=== PATIENT | female | born 1980 | race Caucasian/White ===

== ENCOUNTER → 2020-11-23 15:38 | Outpatient (BNVA) | payer OTHER, SELFPAY | PROVIDERS: PCP Nurse Practitioner Family; Visit Provider Surgery Vascular Surgery ==

== ENCOUNTER 2020-12-20 10:13 | Outpatient (REF) | payer OTHER, SELFPAY ==
--- NOTE | ~2020-12-20 | US_ITS ---
EXAMINATION: RIGHT AND LEFT LOWER EXTREMITY VENOUS ULTRASOUND (REFLUX EXAM) CLINICAL INDICATION: Varicose left lower extremity with inflammation. COMPARISON: None. TECHNIQUE: Color flow triplex imaging and compression Doppler was performed to evaluate both the deep and the superficial systems bilaterally. To evaluate the superficial system, the examination was performed in the upright position. Color-flow Doppler ultrasound and compression ultrasound were utilized. In addition, maneuvers were utilized to demonstrate reflux. FINDINGS: 1. DEEP VENOUS ULTRASOUND OF THE RIGHT LOWER EXTREMITY: Respiratory variation, normal compression and augmented flow are noted in the right common femoral vein as well as the right popliteal vein and there is no evidence of deep venous thrombosis at these locations. There is no evidence of reflux in the deep system in either the common femoral vein or the popliteal vein. There is no evidence of a Michael's cyst. 2. SUPERFICIAL ULTRASOUND WITH DOPPLER OF RIGHT LOWER EXTREMITY: The right great saphenous vein at the saphenofemoral junction measures 6 mm, at the midthigh 3 mm, yhzvd-jns-hspj 3 mm, vokbr-tpx-auwk 3 mm, at midcalf 2 mm and at the ankle measures 1 mm. There is no reflux demonstrated in the right great saphenous vein. The right small saphenous vein measures 2 mm and shows reflux in the midcalf to approximately 2 seconds duration. In the proximal calf there is a 3 mm varicose vein with reflux to approximately 0.5 seconds. 3. DEEP VENOUS ULTRASOUND OF THE LEFT LOWER EXTREMITY: Respiratory variation, normal compression and augmented flow are noted in the left common femoral vein as well as the left popliteal vein and there is no evidence of deep venous thrombosis at these locations. There is no evidence of reflux in the deep system in either the common femoral vein or the popliteal vein. There is no evidence of a Michael's cyst. 4. SUPERFICIAL ULTRASOUND WITH DOPPLER OF LEFT LOWER EXTREMITY: Left great saphenous vein at the saphenofemoral junction measures 7 mm, at the midthigh 2 mm, orcob-ltz-whpz 3 mm, bipjo-muc-qabf 3 mm, at midcalf 1 mm and at the ankle measures 1 mm. There is no reflux demonstrated in the left great saphenous vein. The left small saphenous vein measures 2 mm and shows no reflux. US/US venous duplex LE BI IMPRESSION: 1. No evidence of reflux or thrombus in the common femoral veins or popliteal veins bilaterally. 2. The saphenous systems are competent bilaterally. 3. Insufficiency within the right small saphenous vein in the midcalf up to approximately 2 seconds duration.
--- NOTE | ~2020-12-20 | XR_ITS ---
EXAMINATION: XR CERVICAL SPINE CLINICAL INFORMATION: Cervical disc disorder. COMPARISON: Cervical spine radiographs dated 11/01/2015. TECHNIQUE: AP, lateral, open-mouth, and foraminal views of the cervical spine. FINDINGS: There are no prevertebral soft tissue or bony abnormalities demonstrated. No compression fractures or subluxations are identified. Alignment is maintained at the atlanto-axial articulation. The disc spaces are preserved. No endplate changes are seen. The prevertebral soft tissues are normal. The foramina are patent. XR/XR cervical spine 3V IMPRESSION: Unremarkable examination.
== END 2020-12-20 10:14 | disposition home or self-care (01) ==
LOC: HO.US 10:13
PROVIDERS: PCP Nurse Practitioner Family; Visit Provider Surgery Vascular Surgery
DX: M50.90 Cervical disc disorder, unspecified, unspecified cervical region (principal); I83.12 Varicose veins of left lower extremity with inflammation; I83.893 Varicose veins of bilateral lower extremities with other complications
CPT/HCPCS: 72040; 93970

== ENCOUNTER → 2020-12-28 09:12 | Outpatient (BNVA) | payer OTHER, SELFPAY | PROVIDERS: PCP Nurse Practitioner Family; Visit Provider Surgery Vascular Surgery ==

== ENCOUNTER 2021-01-03 08:33 | Outpatient (REF) | payer OTHER, MEDICAID, SELFPAY ==
[2021-01-03 11:32] LABS: Glucose Urine UA NEG (NEG); Leukocyte Esterase Urine NEG (NEG); Nitrite Urine NEG (NEG); Specific Gravity - Urine 1.015 (1.005-1.025); Urine Blood NEG (NEG); Urine Ketones NEG (NEG); Urine Protein NEG (NEG-TRACE)
[2021-01-03 11:43] LABS: Appearance Urine CLEAR; Color Urine YELLOW
[2021-01-03 12:08] LABS: Alanine Aminotransferase 23 U/L (0-31); Albumin Level 4.2 g/dL (3.5-5.0); Alkaline Phosphatase 96 U/L (39-117); Anion Gap 12 (12-20); Aspartate Amino Transferase 20 U/L (5-31); Bilirubin Total 0.2 mg/dL (0.0-1.0); Blood Urea Nitrogen 9 mg/dL (9-16); Calcium 9.2 mg/dL (8.4-10.2); Carbon Dioxide 26 mmol/L (22-29); Chloride 104 mmol/L (96-108); Cholesterol 152 mg/dL; Estimated Glomerular Filt Rate > 60; Glucose Fasting 89 mg/dL (60-99); HDL Cholesterol 50 mg/dL; LDL Cholesterol Calculated 86 mg/dl; Potassium 4.2 mmol/L (3.3-5.1); Sodium 138 mmol/L (135-145); Total Protein 7.5 g/dL (6.5-8.0); Triglycerides 82 mg/dL
[2021-01-03 12:31] LABS: TSH reflex Free T4 2.24 uIU/mL (0.32-4.0)
[2021-01-06 11:46] LABS: TS Negative Control Passed; TS Panel A 0; TS Panel B 0; TS Positive Control Passed; TSpotTB Negative (SeeBelow)
== END 2021-01-03 08:34 | disposition home or self-care (01) ==
LOC: HO.HMGCLDS 08:33
PROVIDERS: PCP Nurse Practitioner Family; Visit Provider Nurse Practitioner Family
DX: Z00.00 Encounter for general adult medical examination without abnormal findings (principal); Z11.1 Encounter for screening for respiratory tuberculosis
CPT/HCPCS: 36415; 80053; 80061; 81003; 84443; 86481

== ENCOUNTER 2021-01-23 07:09 | Outpatient (RCR) | payer OTHER, MEDICAID, SELFPAY ==
--- NOTE | 2021-01-23 08:05 | MHC.PT.EP ---
[facility] [place] Office [place] Office [place] Office [address] [phone] F: [phone] F: [phone] F: [phone] F: [phone] Physical Therapy Plan of Care Date of Evaluation: Date of Surgery: Diagnosis: cervical spine pain Assessment: Patient is a 40 year old R handed female who presents with s/s consistent with cervicalgia. 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 Patient past medical history includes GERD, no history of c-spine or UE pathology. Current impairments include pain, posture, ROM, strength, activity tolerance and functional mobility. Functional limitations include decreased ability to sleep, sit, work at computer, lift, carry, turn head, drive, and perform weight bearing activities.. Patient is motivated with good rehab potential. Skilled PT will address impairments and functional limitations in order to achieve goals. 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 Manual therapy to restore motion and function. Therapeutic exercise to improve strength and flexibility. Neuromuscular re-education for posture and balance. Therapeutic activities to return to functional activities of daily living. Electronically signed by: Km Vasquez, PT Please sign and return to therapist. Thank you for your referral.
--- NOTE | 2021-06-13 08:35 | MHC.PT.DC ---
[facility] [place] Office [place] Office [place] Office [address] Mendez [address] [phone] F: [phone] F: [phone] F: [phone] F: [phone] Physical Therapy Discharge Report Diagnosis: cervical spine pain Date of Surgery: Date of Evaluation: 01/23/21 Date of Discharge: 01/23/21 Treatments to Date: 1 Cancellations to Date: 0 No Shows to Date: 0 Discharge Status: Patient Elected to Stop Discharge Summary: Pt did not follow up with more PT appointments after the initial evaluation. Patient is a 40 year old R handed female who presents with s/s consistent with cervicalgia. 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 Patient past medical history includes GERD, no history of c-spine or UE pathology. Current impairments include pain, posture, ROM, strength, activity tolerance and functional mobility. Functional limitations include decreased ability to sleep, sit, work at computer, lift, carry, turn head, drive, and perform weight bearing activities.. Patient is motivated with good rehab potential. Skilled PT will address impairments and functional limitations in order to achieve goals. Electronically signed by: Km Vasquez, PT Please sign and return to therapist. Thank you for your referral.
== END 2021-01-24 07:00 | disposition home or self-care (01) ==
LOC: HO.PTCHIC 07:09
PROVIDERS: PCP Nurse Practitioner Family; Visit Provider Nurse Practitioner Family
DX: M54.2 Cervicalgia (principal)
CPT/HCPCS: 97140; 97161

== ENCOUNTER 2021-01-27 08:48 | Outpatient (REF) | payer OTHER, MEDICAID, SELFPAY ==
--- NOTE | ~2021-01-27 | MM_ITS ---
EXAMINATION: MM SCREENING DIGITAL BREAST TOMOSYNTHESIS, BILATERAL CLINICAL INFORMATION: Screening. Asymptomatic. The lifetime risk of breast cancer based on the Tyrer-Cuzick Model is 11%. COMPARISON: Mammography: None TECHNIQUE: Digital breast tomosynthesis is performed in both the craniocaudal and mediolateral oblique views along with computer-aided detection (CAD). Synthesized 2D images are generated from the tomosynthesis. FINDINGS: The breasts are heterogeneously dense, which may obscure small masses (ACR BI-RADS breast composition Category c). There are no significant masses, abnormal calcifications, or other abnormalities. MM/MM tomosynthesis screening BI IMPRESSION: There are no significant changes from prior study. ASSESSMENT: BI-RADS 1: Negative RECOMMENDATION: Routine annual mammography screening. This patient's information was entered into a reminder system with a target due date for their next mammogram.
== END 2021-01-27 08:49 | disposition home or self-care (01) ==
LOC: HO.MAMMO 08:48
PROVIDERS: PCP Nurse Practitioner Family; Visit Provider Nurse Practitioner Family
DX: Z12.31 Encounter for screening mammogram for malignant neoplasm of breast (principal)
CPT/HCPCS: 77063; 77067

== ENCOUNTER 2021-04-17 10:38 | Outpatient (REF) | payer OTHER, MEDICAID, SELFPAY | END 2021-04-17 10:39 | disposition home or self-care (01) | LOC: HO.LAB 10:38 | PROVIDERS: PCP Nurse Practitioner Family; Visit Provider Internal Medicine | DX: Z20.822 Contact with and (suspected) exposure to COVID-19 (principal) | CPT/HCPCS: C9803; U0003; U0005 ==

== ENCOUNTER 2021-05-10 06:31 | Outpatient (REF) | payer OTHER, MEDICAID, SELFPAY | END 2021-05-10 06:32 | disposition home or self-care (01) | LOC: HO.HMGCLDS 06:31 | PROVIDERS: Visit Provider Internal Medicine | DX: Z20.822 Contact with and (suspected) exposure to COVID-19 (principal) | CPT/HCPCS: C9803; U0003; U0005 ==

== ENCOUNTER 2021-12-30 18:05 | Emergency (ER) | payer OTHER, MEDICAID, SELFPAY ==
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
--- NOTE | ~2021-12-30 | CT_ITS ---
EXAMINATION: NONCONTRAST HEAD CT NONCONTRAST CERVICAL SPINE CT INDICATION INFORMATION: Trauma COMPARISON: None TECHNIQUE: Separate noncontrast CT examinations of the head and cervical spine were performed. Coronal and sagittal images were created for each examination at the technologist workstation. This CT examination was performed using dose optimization techniques as appropriate, variously including the following: *Automated exposure control *Adjustment of mA and/or kV according to patient size (this includes techniques or standardized protocols for targeted exams where dose is matched to indication/reason for exam; i.e. extremities or head) *Use of iterative reconstruction technique DLP: 1265 mGy-cm FINDINGS: Head: There is no evidence of acute intracranial hemorrhage or territorial infarction. No abnormal mass effect or midline shift is seen. Potter to white matter differentiation is well preserved. No extra-axial fluid collections are identified. No hydrocephalus. No significant volume loss. There is no abnormal attenuation within the brain parenchyma. No acute osseous or soft tissue abnormality. The mastoid air cells and visualized portions of the paranasal sinuses are well aerated. Cervical spine: There is anatomic alignment of the vertebral bodies and posterior elements. The atlantoaxial and atlantooccipital articulations are intact. Vertebral body heights and intervertebral disc spaces are maintained. No evidence of acute fracture. No prevertebral soft tissue swelling. Visualized portions of the lung apices are unremarkable. The thyroid gland is unremarkable. CT/CT head/brain wo con IMPRESSION: 1. No acute intracranial finding. 2. No acute fracture or malalignment of the cervical spine.
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
--- NOTE | ~2021-12-30 | XR_ITS ---
EXAMINATION: XR SHOULDER, LEFT CLINICAL INFORMATION: Pain. COMPARISON: None TECHNIQUE: Three views of the left shoulder. FINDINGS: Subtle cortical disruption with adjacent lucency in the superior aspect of the scapula, best visualized in the y-scapulary view. No other significant osseous abnormalities. Normal appearance of the soft tissues. Included portions of the left lung are clear. XR/XR shoulder LT min 2V IMPRESSION: Subtle cortical disruption and lucency of the superior scapula, possibly representing an underlying fracture. Recommend correlation with a CT.
[2021-12-30 20:25] VITALS: BP 156/105; PULSE 85; RESP 20; TEMP 36.5; O2SAT 100; BMI 36.6
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
[2021-12-30 23:21] LABS: MANUAL DIFF FLAG NO
--- NOTE | 2021-12-30 23:21 | PC.NURSE ---
IV ACCESS PLACED IN RIGHT AC REFER TO IV ACCESS DOCUMENTATION IN WORKLIST. BLOOD WORK COLLECTED AND SENT TO THE LAB
[2021-12-30 23:24] LABS: Basophils Absolute Auto 0.1 X10*3/uL (0.0-0.2); Basophils Percent Auto 0.3 % (0-2); Eosinophils Percent Auto 0.2 % (0-4); Hematocrit 38.3 % (37.0-47.0); Hemoglobin 12.7 g/dl (12.0-16.0); Imm Gran Abs Auto 0.06 X10*3/uL (0.00-0.03); Imm Gran Pct Auto 0.3 % (0.0-0.4); Lymphocytes Absolute Auto 2.3 X10*3/uL (1.2-4.9); Lymphocytes Percent Auto 12.9 % (20-40); Mean Corpuscular HGB Conc 33.2 g/dl (31.0-35.0); Mean Corpuscular Volume 87.4 fL (80.0-98.0); Monocytes Absolute Auto 0.8 X10*3/uL (0.1-1.2); Monocytes Percent Auto 4.3 % (2-11); Neutrophils Absolute Auto 14.8 x10*3/uL (2.0-8.3); Platelet Count 305 X10*3/uL (160-400); Red Blood Count 4.38 X10*6/uL (4.20-5.50); Red Cell Distribution Width 13.1 % (11.0-16.0)
[2021-12-30] MEDS: oxyCODONE HCl Immed Release 5 MG TABLET PO (23:26)
[2021-12-30] MEDS: Acetaminophen 325 MG TABLET 975 MG PO (23:26)
--- NOTE | 2021-12-30 23:30 | PC.NURSE ---
PT MEDICATED PER MAR ORDERS, BED LOCKED IN LOWEST POSITION AND CALL LIGHT WITHIN REACH
[2021-12-30 23:35] LABS: COVID-19 Test Negative (Negative)
[2021-12-30 23:41] LABS: Anion Gap 15 (12-20); Blood Urea Nitrogen 11 mg/dL (9-16); Calcium 9.4 mg/dL (8.4-10.2); Carbon Dioxide 23 mmol/L (22-29); Chloride 105 mmol/L (96-108); Creatinine Clr Calc Pharmacy 103.4; Estimated Glomerular Filt Rate > 60; Glucose Random 111 mg/dL (60-115); Potassium 4.5 mmol/L (3.3-5.1); Sodium 138 mmol/L (135-145)
[2021-12-30 23:55] LABS: HCG Quantitative < 2 mIU/mL
[2021-12-31] MEDS: iohexoL 350 MG/ML 100 ML INFUS..BTL IV (00:45)
== END 2021-12-31 01:46 | disposition home or self-care (01) ==
PROVIDERS: Physician Assistant; Emergency Provider Emergency Medicine; PCP Nurse Practitioner Family
DX: S42.102A Fracture of unspecified part of scapula, left shoulder, initial encounter for closed fracture (principal); M54.2 Cervicalgia; R10.9 Unspecified abdominal pain; R51.9 Headache, unspecified; M54.6 Pain in thoracic spine; M25.512 Pain in left shoulder; V27.4XXA Motorcycle driver injured in collision with fixed or stationary object in traffic accident, initial encounter; Y93.9 Activity, unspecified; Y92.410 Unspecified street and highway as the place of occurrence of the external cause; Y99.9 Unspecified external cause status; Z20.822 Contact with and (suspected) exposure to COVID-19; Z79.899 Other long term (current) drug therapy
CPT/HCPCS: 36415; 70450; 71260; 72125; 73030; 74177; 80048; 84702; 85025; 87635; 99284; Q9967

== ENCOUNTER 2022-01-07 08:54 | Outpatient (REF) | payer OTHER, MEDICAID, SELFPAY ==
[2022-01-07 11:24] LABS: MANUAL DIFF FLAG NO
[2022-01-07 11:27] LABS: Appearance Urine Clear; Color Urine Yellow; Glucose Urine UA Negative (Negative); Leukocyte Esterase Urine Negative (Negative); Nitrite Urine Negative (Negative); Urine Blood Negative (Negative); Urine Ketones Negative (Negative); Urine Protein Negative (Neg-Trace)
[2022-01-07 11:40] LABS: Basophils Percent Auto 0.5 % (0-2); Eosinophils Absolute Auto 0.2 X10*3/uL (0.0-0.4); Hematocrit 36.7 % (37.0-47.0); Hemoglobin 12.2 g/dl (12.0-16.0); Imm Gran Abs Auto 0.02 X10*3/uL (0.00-0.03); Imm Gran Pct Auto 0.3 % (0.0-0.4); Lymphocytes Absolute Auto 1.6 X10*3/uL (1.2-4.9); Lymphocytes Percent Auto 21.3 % (20-40); Mean Corpuscular HGB Conc 33.2 g/dl (31.0-35.0); Mean Corpuscular Hemoglobin 29.1 pg (27.0-33.0); Mean Corpuscular Volume 87.6 fL (80.0-98.0); Mean Platelet Volume 11.3 fL (9.4-12.3); Monocytes Absolute Auto 0.4 X10*3/uL (0.1-1.2); Monocytes Percent Auto 5.2 % (2-11); Neutrophils Absolute Auto 5.2 x10*3/uL (2.0-8.3); Neutrophils Percent Auto 69.7 % (45-73); Platelet Count 311 X10*3/uL (160-400); Red Blood Count 4.19 X10*6/uL (4.20-5.50); Red Cell Distribution Width 12.7 % (11.0-16.0); White Blood Count 7.4 X10*3/uL (4.8-10.8)
[2022-01-07 12:13] LABS: Alanine Aminotransferase 23 U/L (0-31); Alkaline Phosphatase 85 U/L (39-117); Anion Gap 12 (12-20); Aspartate Amino Transferase 21 U/L (5-31); Bilirubin Total 0.3 mg/dL (0.0-1.0); Blood Urea Nitrogen 9 mg/dL (9-16); Carbon Dioxide 28 mmol/L (22-29); Chloride 105 mmol/L (96-108); Cholesterol 153 mg/dL; Estimated Glomerular Filt Rate > 60; Glucose Fasting 101 mg/dL (60-99); HDL Cholesterol 46 mg/dL; LDL Cholesterol Calculated 87 mg/dl; Potassium 4.5 mmol/L (3.3-5.1); Sodium 140 mmol/L (135-145); Total Protein 7.1 g/dL (6.5-8.0); Triglycerides 101 mg/dL
[2022-01-07 12:17] LABS: TSH reflex Free T4 1.67 uIU/mL (0.32-4.0)
== END 2022-01-07 08:55 | disposition home or self-care (01) ==
LOC: HO.HMGCLDS 08:54
PROVIDERS: PCP Nurse Practitioner Family; Visit Provider Nurse Practitioner Family
DX: Z00.00 Encounter for general adult medical examination without abnormal findings (principal)
CPT/HCPCS: 36415; 80053; 80061; 81003; 84443; 85025

== ENCOUNTER 2022-02-04 07:29 | Outpatient (REF) | payer OTHER, MEDICAID, SELFPAY ==
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
== END 2022-02-04 07:30 | disposition home or self-care (01) ==
LOC: HO.HOSX 07:29
PROVIDERS: Visit Provider Physician Assistant
DX: M25.512 Pain in left shoulder (principal)
CPT/HCPCS: 73030

== ENCOUNTER 2022-03-18 08:19 | Outpatient (REF) | payer OTHER, MEDICAID, SELFPAY ==
--- NOTE | ~2022-03-18 | XR_ITS ---
EXAMINATION: XR SHOULDER, LEFT CLINICAL INFORMATION: Shoulder pain. Prior history scapular fracture. COMPARISON: Radiographs left shoulder 02/04/2022, 12/30/2021; CT chest 12/31/2021 TECHNIQUE: Left shoulder is imaged in 3 views. FINDINGS: There is superior lateral scapular fracture, or alignment similar to prior exams. There is no interval new fracture or change in alignment or destructive process. The glenohumeral joint is unremarkable. Again, there is mild widening acromioclavicular joint with mild elevation of the distal clavicle. XR/XR shoulder LT min 2V IMPRESSION: 1. Prior superior scapular fracture, or alignment similar to prior exam. 2. Mild acromioclavicular separation, stable.
== END 2022-03-18 08:20 | disposition home or self-care (01) ==
LOC: HO.HOSX 08:19
PROVIDERS: Visit Provider Physician Assistant
DX: M25.512 Pain in left shoulder (principal)
CPT/HCPCS: 73030

== ENCOUNTER 2022-03-21 07:00 | Outpatient (RCR) | payer OTHER, MEDICAID, SELFPAY ==
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
== END 2022-04-23 10:44 | disposition home or self-care (01) ==
LOC: HO.PTCHIC 07:00
PROVIDERS: PCP Nurse Practitioner Family; Visit Provider Physician Assistant
DX: S42.102A Fracture of unspecified part of scapula, left shoulder, initial encounter for closed fracture (principal)
CPT/HCPCS: 97110; 97161

== ENCOUNTER 2022-04-29 06:26 | Outpatient (REF) | payer OTHER, MEDICAID, SELFPAY | END 2022-04-29 06:27 | disposition home or self-care (01) | LOC: HO.HOSX 06:26 | PROVIDERS: Visit Provider Physician Assistant | DX: Z13.89 Encounter for screening for other disorder (principal) ==

== ENCOUNTER → 2022-11-06 15:45 | Outpatient (BNV) | payer OTHER, MEDICAID, SELFPAY | PROVIDERS: PCP Pediatrics; Visit Provider Radiology Diagnostic Radiology | DX: Z12.31 Encounter for screening mammogram for malignant neoplasm of breast (principal) | CPT/HCPCS: 77063; 77067 ==

== ENCOUNTER 2022-11-06 15:48 | Outpatient (REF) | payer OTHER, MEDICAID, SELFPAY ==
--- NOTE | ~2022-11-06 | MM_ITS ---
EXAMINATION: MM SCREENING DIGITAL BREAST TOMOSYNTHESIS, BILATERAL CLINICAL INFORMATION: Screening. Asymptomatic. The lifetime risk of breast cancer based on the Tyrer-Cuzick Model is 16.4.%. COMPARISON: Mammography: This study is compared with the prior mammogram from 01/27/2021. TECHNIQUE: Digital breast tomosynthesis is performed in both the craniocaudal and mediolateral oblique views along with computer-aided detection (CAD). Synthesized 2D images are generated from the tomosynthesis. FINDINGS: The breasts are heterogeneously dense, which may obscure small masses (ACR BI-RADS breast composition Category c). There are no significant masses, abnormal calcifications, or other abnormalities. MM/MM tomosynthesis screening BI IMPRESSION: No mammographic evidence of malignancy. ASSESSMENT: BI-RADS BI-RADS 1 - Negative RECOMMENDATION: Routine annual mammography screening. 1 year F/U This patient's information was entered into a reminder system with a target due date for their next mammogram.
== END 2022-11-06 15:49 | disposition home or self-care (01) ==
LOC: HO.MAMMO 15:48
PROVIDERS: PCP Pediatrics; Visit Provider Pediatrics
DX: Z12.31 Encounter for screening mammogram for malignant neoplasm of breast (principal)
CPT/HCPCS: 77063; 77067

== ENCOUNTER 2023-01-15 20:15 | Emergency (ER) | payer OTHER, SELFPAY ==
--- NOTE | ~2023-01-15 | XR_ITS ---
EXAMINATION: XR WRIST, RIGHT CLINICAL INFORMATION: Fall. Pain. COMPARISON: None available. TECHNIQUE: PA, lateral, and oblique views of the right wrist. FINDINGS: The bone mineralization is within normal limits. There is a mildly displaced fracture through the distal radius extending to the joint space. No other fracture is seen. The soft tissues are unremarkable. XR/XR wrist RT min 3V IMPRESSION: Mildly displaced fracture of the distal radius extending to the joint space.
[2023-01-15 21:41] VITALS: BP 156/103; PULSE 62; RESP 16; TEMP 36.6; O2SAT 99; BMI 37.8
[2023-01-16 00:42] VITALS: BP 152/87; PULSE 59; RESP 16; TEMP 36.6; O2SAT 98
--- NOTE | 2023-01-16 00:48 | MHC.EDTECH ---
this pct assumed care of pt at this time ,vitals sign taken ,pt resting quietly in bed .
[2023-01-16] MEDS: Morphine Sulfate Immed Release 15 MG TABLET PO (01:57)
--- NOTE | 2023-01-16 02:03 | ED.EXTPRO ---
HPI - Extremity Problem General Chief complaint: Extremity Injury, Upper Stated complaint: fell, right arm pain , lower back pain Time Seen by Provider: 01/16/23 01:17 Source: patient Mode of arrival: ambulatory Limitations: no limitations History of Present Illness HPI Narrative: Patient slipped and fell hitting her right wrist to the ground with body weight on top of it complaining of pain and swelling of the right wrist no prior history of fracture in the same area before no other injuries Related Data Previous Rx's Medication Instructions Recorded ibuprofen 600 mg tablet 600 mg PO Q8H PRN pain #14 tabs 12/31/21 oxycodone-acetaminophen 5 mg-325 1 tab PO Q6H PRN pain #20 tabs 01/16/23 mg tablet (Percocet) Allergies Allergy/AdvReac Type Severity Reaction Status Date / Time No Known Allergies Allergy Verified 01/15/23 21:46 Review of Systems Review of Systems: Yes all other systems are reviewed and are negative [facility] Past Medical History Medical History GERD (gastroesophageal reflux disease) Surgical History History of loop electrical excision procedure (LEEP) Hx of section Family History Family History Father No problems noted. Mother Diabetes Maternal Aunt Mental health disorder Maternal Aunt Mental health disorder Social History Social History Housing: House Unable to assess alcohol history related to: Unable to respond Alcohol intake: never Patient Tobacco Use Status: Never used Tobacco Smoked in Last 30 Days: No e-Cigarette/Vaping Use: Never Used Second Hand Smoke Exposure: No Use of substances other than those prescribed or required for medical reasons: No Advance Directives: No Advance Directives Information Provided: Yes service: No Current occupational status: employed Cognitive needs: No Hearing needs: No Vision needs: No Physical Exam Vital Signs: Vital Signs: Last Vital Signs Temp 97.9 F 01/16/23 00:42 Pulse 59 01/16/23 00:42 Resp 16 01/16/23 00:42 BP 152/87 H 01/16/23 00:42 Pulse Ox 98 01/16/23 00:42 O2 Del Method Room Air 01/16/23 00:42 BMI result Body Mass Index 37.8 Appearance: Alert. Oriented X3. No acute distress. ENT: Pharynx normal. Oral Mucosa moist Neck: Normal inspection. Neck supple. CVS: Normal heart rate and rhythm. Pulses normal. Respiratory: No respiratory distress. Equal air entry bilateral, no wheezing/rales/rhonchi Abdomen: Soft and nontender. Bowel sounds are present, no mass palpable, no CVA tenderness Skin: Skin warm and dry. Normal skin color. Normal skin turgor. Extremities: No lower extremity edema. No calf tenderness tenderness and swelling right wrist neurovascular intact no deformity Neuro: Oriented X 3. No motor deficit. No sensory deficit.No cerebellar signs , cranial nerves II-XII intact Medications Administered Discontinued Medications Generic Name Dose Route Start Last Admin Trade Name Freq PRN Reason Stop Dose Admin Morphine Sulfate 15 mg 01/16/23 01:46 01/16/23 01:57 Morphine Sulfate Immed Release 15 Mg Tablet PO 01/16/23 01:47 15 mg ONCE ONE Administration Medical Decision Making Radiology Impression Discussion of test interpretation with radiology: I have reviewed the radiologist's reading. Radiologist Impression: EXAMINATION: XR WRIST, RIGHT CLINICAL INFORMATION: Fall. Pain.? COMPARISON: None available.? TECHNIQUE: PA, lateral, and oblique views of the right wrist. FINDINGS: The bone mineralization is within normal limits. There is a mildly displaced fracture through the distal radius extending to the joint space. No other fracture is seen. The soft tissues are unremarkable.? XR/XR wrist RT min 3V IMPRESSION: Mildly displaced fracture of the distal radius extending to the joint space. ? Procedures Orthopedic Splinting/Casting Injury #1: Side: right Upper Extremity Injury Location: wrist Upper Extremity Immobilizer: sugar tong splint Discharge Plan Discharge Clinical Impression: Distal radial fracture Patient Disposition: Home, Self-Care Instructions: Wrist Fracture in Adults (ED) Additional Instructions: Wear the splint and sling for support Keep right hand elevated Pain medication as prescribed Follow-up with orthopedics for further evaluation and management in next 3- 4 days Prescriptions: New oxycodone-acetaminophen [Percocet] 5-325 mg tablet 1 tab PO Q6H PRN (Reason: pain) Qty: 20 0RF Rx Instructions: Partial Fill upon patient request. No Action ibuprofen 600 mg tablet 600 mg PO Q8H PRN (Reason: pain) Qty: 14 0RF Referrals: Keanu Crespo MD [Physician] - 5 days Stand Alone Forms: Work/School Release Interventions: ED Discharge Assessment Last Done: 01/16/23 01:57 Discharge Date/Time: 01/16/23 01:58
== END 2023-01-16 01:58 | disposition home or self-care (01) ==
PROVIDERS: Emergency Provider Internal Medicine; PCP Pediatrics
DX: S52.501A Unspecified fracture of the lower end of right radius, initial encounter for closed fracture (principal); M25.531 Pain in right wrist; W01.0XXA Fall on same level from slipping, tripping and stumbling without subsequent striking against object, initial encounter; Y93.9 Activity, unspecified; Y92.9 Unspecified place or not applicable; Y99.9 Unspecified external cause status
CPT/HCPCS: 29125; 73110; 99283; 99284

== ENCOUNTER 2023-01-21 08:33 | Outpatient (REF) | payer OTHER, SELFPAY ==
--- NOTE | ~2023-01-21 | XR_ITS ---
EXAMINATION: XR WRIST, RIGHT CLINICAL INFORMATION: Right wrist pain COMPARISON: None available. TECHNIQUE: PA, lateral, and oblique views of the right wrist. FINDINGS: Comminuted, nondisplaced fracture distal right radius with intra-articular extension. Alignment is maintained. Mild soft tissue swelling. XR/XR wrist RT min 3V IMPRESSION: Fractured distal right radius.
== END 2023-01-21 08:34 | disposition home or self-care (01) ==
LOC: HO.HOSX 08:33
PROVIDERS: Visit Provider Orthopaedic Surgery
DX: S52.501A Unspecified fracture of the lower end of right radius, initial encounter for closed fracture (principal)
CPT/HCPCS: 73110

== ENCOUNTER 2023-01-21 13:42 | Outpatient (AMB) | payer OTHER, SELFPAY ==
--- NOTE | 2023-01-21 13:57 | A.OFFVIS_ITS ---
Intake Vital Signs 01/21/23 14:00 Height 5 ft 1 in Weight 200 lb BMI 37.8 Intake Visit Reasons: ED follow up rt Dist Radius fx 01/16/23 Intake Note: Weston 42yr old right hand dominant female presents today with her Nikolas for a new injury from 01/16/23. States she slipped and fell hitting her right wrist to the ground with body weight on top of it. Seen in ED same day where xrays were taken, patient was splinted and referred to our Orthopedic office. Patient states her pain is all over her hand. Has stiffness, tenderness, bruising and is not able to make a full close . Xrays updated in office. Allergies No Known Allergies Allergy (Verified 01/21/23 13:59) HPI ED follow up rt Dist Radius fx 01/16/23 HPI Details Weston Díaz is a 42-year-old right hand dominant woman who presents today with her Nikolas to the office for an evaluation of right distal radius fracture on 01/16/23. The patient states that she slipped on some stairs and fell hitting her right wrist to the ground with body weight on top of it. She complains of pain and swelling of the right wrist.The patient states that her pain is all over her hand. She has stiffness, tenderness, bruising and is not able to make a full close. 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 She was seen in ED same day where x-rays were taken. The patient was splinted and referred to us. [facility] Medical History (Updated 01/21/23 @ 14:23 by Duarte Trejo) Fracture of right distal radius GERD (gastroesophageal reflux disease) Surgical History Hx of section History of loop electrical excision procedure (LEEP) Family History Father No problems noted. 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 Cognitive needs: No Hearing needs: No Vision needs: No Review of Systems Const All systems reviewed & are unremarkable except as noted in HPI and below Physical Exam Vital Signs: BMI result Body Mass Index 37.8 Const General: cooperative, healthy appearing and no acute distress Orientation/consciousness: oriented to person and oriented to place HEENT Head: Yes normocephalic and Yes atraumatic Eyes EOM: EOMs intact bilaterally Resp Effort & Inspection: normal respiratory effort and able to speak in complete sentences Cardio Jugular venous distension: no JVD Skin General skin exam: turgor normal Rashes: no rashes Trauma: no lacerations or abrasions Neuro Other: Vascular: Cap refill brisk General: oriented to person and oriented to place Extrem Other: Evaluation of right Upper Extremity: Neuro: Sensation intact to all digits. Vascular: Cap refill brisk. She has some swelling and volar ecchymosis of her right wrist. She is most tender to palpation over the right distal radius. She has some mild tenderness to palpation over the distal ulna. No tenderness about the elbow over the proximal forearm squeeze. No tenderness along the length of the ulna until I get to the distal ulna. She has full pronation. With encouragement I can get her to about 45 degrees of supination without discomfort. With encouragement I can get her to bring her fingers close to a week fist and back into extension. No lacerations or evidence of open injury. Radiographs: Three views of the right wrist were taken today and reviewed by me in clinic. It shows a comminuted intra-articular fracture of the right distal radius that is only minimally displaced. I do not see any step-off at the distal radial articular surface. She has about 5 degrees of dorsal tilt on the lateral. Psych Appearance: grossly normal Affect: normal affect Attitude: cooperative Assessment & Plan Assessment & Plan (1) Fracture of right distal radius: Code(s): S52.501A - Unspecified fracture of the lower end of right radius, initial encounter for closed fracture Plan 1. Right distal radius fracture, comminuted intra-articular Minimally displaced, with no articular step-off, and about 4-5 degrees of dorsal tilt on the lateral.. DOI: 01/16/23. Occurred when she fell down some steps I educated her about this condition We did discuss operative and non operative treatment options. We are going to try and manage this non operatively, however it is possible that she may need operative treatment of this fracture. She is being placed in a well-molded cast and will follow-up next week with new radiographs three views of the right wrist out of plaster. Will determine next week whether we will manage this with surgery or continue to manage this fracture non operatively. We talked to her about the importance of activity modification. This point I do not even want her handling cell phone with her right hand. She is going to work on active finger range of motion and also work on not keeping her hand in a pronated position but allowing it to come into about 45 degrees of supination periodically. The patient will follow up in one week with repeat x-ray three views of the right wrist out of plaster.. Scribed for Dr. Neida Ramirez by Duarte Trejo, medical appliance maker, on 01/21/2023. I, Dr. Neida Ramirez, have personally reviewed and agree with the information entered by the scribe. Orders: Orders XR wrist RT min 3V Today M25.531 - Pain in right wrist Coding Level of Care Code New Pt Level 3 (02287) Diagnoses Fracture of right distal radius S52.501A
[2023-01-21 14:00] VITALS: BMI 37.8
== END 2023-01-21 14:54 | disposition home or self-care (01) ==
PROVIDERS: PCP Pediatrics; Visit Provider Orthopaedic Surgery
DX: S52.351A Displaced comminuted fracture of shaft of radius, right arm, initial encounter for closed fracture (principal)
CPT/HCPCS: 25600; 99204

== ENCOUNTER 2023-01-29 11:30 | Outpatient (REF) | payer OTHER, SELFPAY ==
--- NOTE | ~2023-01-29 | XR_ITS ---
EXAMINATION: XR WRIST, RIGHT CLINICAL INFORMATION: Right wrist pain. COMPARISON: Multiple priors, most recent right wrist radiographs dated 01/21/2023. TECHNIQUE: PA, lateral, and oblique views of the right wrist. FINDINGS: Redemonstration of a mildly displaced and comminuted distal radial fracture in unchanged anatomic alignment when compared to the prior examination. No significant new bone/callus formation. No joint space narrowing or marginal osteophytes. No concerning lytic or blastic osseous lesion. XR/XR wrist RT min 3V IMPRESSION: Distal radial fracture in unchanged anatomic alignment. No significant new bone/callus formation.
== END 2023-01-29 11:31 | disposition home or self-care (01) ==
LOC: HO.HOSX 11:30
PROVIDERS: Visit Provider Orthopaedic Surgery
DX: S52.501D Unspecified fracture of the lower end of right radius, subsequent encounter for closed fracture with routine healing (principal)
CPT/HCPCS: 73110

== ENCOUNTER 2023-01-29 14:14 | Outpatient (AMB) | payer OTHER, SELFPAY ==
--- NOTE | 2023-01-29 14:28 | MHC.OFFVIS ---
Intake Vital Signs 01/29/23 14:29 Height 5 ft 1 in Weight 200 lb BMI 37.8 Intake Visit Reasons: OV- rt Dist Radius fx 01/16/23 Intake Note: Weston 42 yr old right hand dominant female presents today for her follow up visit for her right distal radius fracture from 01/16/23. Cast removed and xrays updated. Presents today to determine whether we will manage this with surgery or continue to manage this fracture non operatively. Patient states she is having pain and has concerns due to bruising and swelling. Allergies No Known Allergies Allergy (Verified 01/21/23 13:59) HPI OV- rt Dist Radius fx 01/16/23 HPI Details Weston is a 42 year old right hand dominant Macanese speaking woman who presents for a follow-up of her right distal radius fracture, DOI: 01/7623. She complains of pain in her wrist as well as concerns over swelling & bruising. She says she also feels a throbbing pain in her fingers at times, and says it is painful to move her fingers [facility] Medical History (Updated 01/21/23 @ 14:23 by Duarte Trejo) Fracture of right distal radius GERD (gastroesophageal reflux disease) Surgical History Hx of section History of loop electrical excision procedure (LEEP) Family History Father No problems noted. 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 Cognitive needs: No Hearing needs: No Vision needs: No Review of Systems Const All systems reviewed & are unremarkable except as noted in HPI and below Physical Exam Vital Signs: BMI result Body Mass Index 37.8 Const General: no acute distress and alert Orientation/consciousness: patient oriented x3 Neuro General: patient oriented x3 Extrem Other: Evaluation of Right Upper Extremity: The patient is alert, oriented, and in no acute distress Neuro: Sensation intact to all digits She has some resolving swelling and volar ecchymosis She is able to demonstrate that she can make a weak fist and bring all her fingers back into extension. She still has some tenderness over the fracture site, but the skin is soft. Skin is good in good condition Radiographs: 3 views of the right wrist were taken and viewed by me today in clinic. They show a comminuted intra-articular fracture of the right distal radius that is only minimally displaced. I do not see any step-off at the distal radial articular surface. She has ~4-5 degrees of dorsal tilt on the lateral and her alignment is unchanged compared to original radiographs. Psych Appearance: grossly normal Affect: normal affect Attitude: cooperative Assessment & Plan Assessment & Plan (1) Fracture of right distal radius: Code(s): S52.501A - Unspecified fracture of the lower end of right radius, initial encounter for closed fracture Plan Assessment & Plan: 1. Right distal radius fracture, comminuted intra-articular Minimally displaced, with no articular step-off, and ~4-5 degrees of dorsal tilt on the lateral.. DOI: 01/15/23. Occurred when she fell down some steps I educated her about this condition Her fracture alignment has been maintained. We will continue to manage this conservatively. She was placed in a new molded short-arm cast. We talked to her about the importance of activity modification, she is to continue to work on finger ROM exercises at home, 20x daily I explained that the pain she feels in her fingers is attributed to stiffness and disuse and explained that gentle motion is the best thing to help minimize her pain I recommend she take ibuprofen or Tylenol for pain at this point. She is now 2 weeks post injury. 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 Orders: Orders XR wrist RT min 3V Today M25.531 - Pain in right wrist Coding Level of Care Code Global (06958) Diagnoses Fracture of right distal radius S52.501A
[2023-01-29 14:29] VITALS: BMI 37.8
== END 2023-01-29 15:28 | disposition home or self-care (01) ==
PROVIDERS: PCP Pediatrics; Visit Provider Orthopaedic Surgery
DX: S52.501A Unspecified fracture of the lower end of right radius, initial encounter for closed fracture (principal)
CPT/HCPCS: 99024

== ENCOUNTER 2023-02-07 10:27 | Outpatient (REF) | payer OTHER, SELFPAY ==
--- NOTE | ~2023-02-07 | XR_ITS ---
EXAMINATION: XR WRIST, RIGHT CLINICAL INFORMATION: Pain in the right wrist COMPARISON: Multiple prior radiographs most recent 01/29/2023 TECHNIQUE: PA, lateral, and oblique views of the right wrist. FINDINGS: Mildly comminuted possibly intra-articular fracture the distal radius unchanged compared to prior. There is minimal if any displacement overall unchanged. The remaining bones joints soft tissues are unremarkable. XR/XR wrist RT min 3V IMPRESSION: Stable appearance of the distal radius fracture
== END 2023-02-07 10:28 | disposition home or self-care (01) ==
LOC: HO.HOSX 10:27
PROVIDERS: Visit Provider Orthopaedic Surgery
DX: M25.531 Pain in right wrist (principal)
CPT/HCPCS: 73110

== ENCOUNTER 2023-02-07 10:28 | Outpatient (AMB) | payer OTHER, SELFPAY ==
--- NOTE | 2023-02-07 10:56 | MHC.OFFVIS ---
Intake Intake Visit Reasons: O/V rt distal radius 01/15/23 Intake Note: Weston is a 42 yr old right hand dominant female presents today for her follow up visit for her right distal radius fracture from 01/16/23. Cast removed and xrays updated in our office today. She reports no pain at this time. Allergies No Known Allergies Allergy (Verified 02/07/23 10:58) Medication List - Last Reconciled 02/07/23 by Alize May RN hydrocodone-acetaminophen 5-325 mg 1 tab PO Q8H PRN ibuprofen 600 mg PO Q8H PRN HPI O/V rt distal radius 01/15/23 HPI Details The patient is a 42-year-old [id number]-[id number] woman who is following up from a right distal radius fracture that she sustained on 01/16/2023. This has been managed non operatively in a cast. She says she is doing well on no longer has pain. [facility] Medical History (Updated 03/05/23 @ 10:48 by Marquez Pat PA-C) Fracture of right distal radius GERD (gastroesophageal reflux disease) Surgical History Hx of section History of loop electrical excision procedure (LEEP) Family History Father No problems noted. 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 Regarding her right upper extremity her swelling and ecchymosis are all resolving. Her skin is in good condition. Sensation intact to all digits and she can bring her fingers close to a fist and back into extension. Minimal tenderness at the fracture site, and satisfactory clinical fracture alignment. Radiographs three views of the right wrist were taken and reviewed by me: They show a minimally displaced right distal radius fracture with satisfactory alignment. She has perhaps 4 or 5 degrees of dorsal tilt on the lateral, and this is unchanged. There is some evidence of interval bony healing. Assessment & Plan Assessment & Plan (1) Fracture of right distal radius: Code(s): S52.501A - Unspecified fracture of the lower end of right radius, initial encounter for closed fracture Qualifiers: Encounter type: subsequent encounter Fracture type: closed Fracture morphology: Colles' Fracture healing: with routine healing Qualified Code(s): S52.531D - Colles' fracture of right radius, subsequent encounter for closed fracture with routine healing Plan Assessment and plan: 1. Right distal radius fracture, minimally displaced This is being managed non operatively. Date of injury 01/16/2023 She appears to be doing well. I educated her about this condition. She was placed in a Velcro wrist splint which she is to wear like a cast for the next week. She is then to begin working on wrist range of motion exercises. Talked about the importance of activity modification and not lifting anything heavier than cell phone. She will follow-up in 3-4 weeks to see how she is doing and assess range of motion. Orders: Orders XR wrist RT min 3V 02/07/23 M25.531 - Pain in right wrist Coding Level of Care Code Global (68884) Diagnoses Closed Colles' fracture of right radius with routine healing, subsequent encounter S52.531D Encounter type: subsequent encounter Fracture type: closed Fracture morphology: Colles' Fracture healing: with routine healing
== END 2023-02-07 11:49 | disposition home or self-care (01) ==
PROVIDERS: PCP Pediatrics; Visit Provider Orthopaedic Surgery
DX: S52.531D Colles' fracture of right radius, subsequent encounter for closed fracture with routine healing (principal)
CPT/HCPCS: 99024

== ENCOUNTER 2023-03-05 08:11 | Outpatient (AMB) | payer OTHER, SELFPAY ==
--- NOTE | 2023-03-05 08:14 | MHC.OFFVIS ---
Intake Vital Signs 03/05/23 08:15 Height 5 ft 1 in Weight 200 lb BMI 37.8 Intake Visit Reasons: OV-rt distal radius 01/15/23-x/ray 3V R wrist Intake Note: Weston diaz 42 year old right hand dominant female presents today for a follow up of right distal radius fx, DOI 01/15/23. Patient reports that she does at home ROM exercises that has provided improvement, however she continues to have limited ROM. Allergies No Known Allergies Allergy (Verified 02/07/23 10:58) HPI OV-rt distal radius 01/15/23-x/ray 3V R wrist HPI Details Weston diaz 42-year-old right hand dominant female presents today for a follow up of right distal radius fracture, DOI: 01/15/23. She continues to perform home ROM exercises that has provided improvement, however she continues to have limited ROM. [facility] Medical History (Updated 03/05/23 @ 10:48 by Marquez Pat PA-C) Fracture of right distal radius GERD (gastroesophageal reflux disease) Surgical History Hx of section History of loop electrical excision procedure (LEEP) Family History Father No problems noted. 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 Cognitive needs: No Hearing needs: No Vision needs: No Review of Systems Const All systems reviewed & are unremarkable except as noted in HPI and below Physical Exam Vital Signs: BMI result Body Mass Index 37.8 Const General: cooperative, healthy appearing, comfortable, no acute distress, well developed and alert Orientation/consciousness: patient oriented x3 HEENT Head: Yes normal to inspection, Yes normocephalic and Yes atraumatic Eyes General: appearance normal, both eyes and all related structures Neck Neck: Yes normal visual inspection and Yes no lymphadenopathy Resp Effort & Inspection: normal respiratory effort and able to speak in complete sentences Cardio Rate: regular rate Peripheral pulses: Peripheral pulses 2+ throughout GI Inspection: Yes normal to inspection Palpation (GI): Soft to palpation Skin General skin exam: no rashes or lesions noted Neuro General: patient oriented x3 Extrem Other: Right wrist: Normal to inspection. No swelling. No tenderness over the distal radius. She can extend the wrist to 45 degrees. Flexion to 50 degrees. She has full supination and pronation. Decreased inspector aligning strength when compared to the contralateral side. NVI. Psych Appearance: grossly normal Mental Status: mental status grossly normal Results Reviewed Results Reviewed: An x-ray of the right wrist was obtained in the office today shows the radius fragment with stable appearance of alignment. Assessment & Plan Assessment & Plan (1) Fracture of right distal radius: Code(s): S52.501A - Unspecified fracture of the lower end of right radius, initial encounter for closed fracture Qualifiers: Encounter type: subsequent encounter Fracture type: closed Fracture morphology: Colles' Fracture healing: with routine healing Qualified Code(s): S52.531D - Colles' fracture of right radius, subsequent encounter for closed fracture with routine healing Plan She will continue to increase activity as tolerated. I put in a referral for occupational therapy to improve her ROM and work on inspector aligning strength. If she has any questions or concerns, she will contact the office otherwise follow-up as needed. Orders: Orders XR wrist RT min 3V Today M25.531 - Pain in right wrist OT Evaluation and Treatment Today S52.501A - Unspecified fracture of the lower end of right radius, initial encounter for closed fracture Patient Instructions: Scribed for Marquez Pat PA-C, by Duarte Trejo medical laboratory technicians, on 03/05/2023. I, Marquez Pat PA-C, have personally reviewed and agree with the information entered by the scribe. Coding Level of Care Code Global (41042) Diagnoses Closed Colles' fracture of right radius with routine healing, subsequent encounter S52.531D Encounter type: subsequent encounter Fracture type: closed Fracture morphology: Colles' Fracture healing: with routine healing
[2023-03-05 08:15] VITALS: BMI 37.8
== END 2023-03-05 08:47 | disposition home or self-care (01) ==
PROVIDERS: PCP Pediatrics; Visit Provider Physician Assistant
DX: S52.531D Colles' fracture of right radius, subsequent encounter for closed fracture with routine healing (principal)
CPT/HCPCS: 99024

== ENCOUNTER 2023-03-05 08:11 | Outpatient (REF) | payer OTHER, SELFPAY ==
--- NOTE | ~2023-03-05 | XR_ITS ---
EXAMINATION: XR WRIST, RIGHT CLINICAL INFORMATION: Pain in right wrist COMPARISON: Multiple images from January 2023 TECHNIQUE: PA, lateral, and oblique views of the right wrist. FINDINGS: There is interval healing of mildly displaced, impacted fracture of the distal radius. The fracture line is still visualized. There is mild soft tissue swelling. XR/XR wrist RT min 3V IMPRESSION: Incomplete healing of distal radial fracture on the right .
== END 2023-03-05 08:12 | disposition home or self-care (01) ==
LOC: HO.HOSX 08:11
PROVIDERS: PCP Pediatrics; Visit Provider Physician Assistant
DX: S52.531D Colles' fracture of right radius, subsequent encounter for closed fracture with routine healing (principal)
CPT/HCPCS: 73110

== ENCOUNTER 2023-07-15 10:39 | Outpatient (REF) | payer OTHER, SELFPAY ==
[2023-07-15 14:17] LABS: MANUAL DIFF FLAG NO
[2023-07-15 14:21] LABS: Basophils Percent Auto 0.5 % (0-2); Eosinophils Absolute Auto 0.2 X10*3/uL (0.0-0.4); Eosinophils Percent Auto 2.9 % (0-4); Hemoglobin 12.3 g/dl (12.0-16.0); Imm Gran Abs Auto 0.02 X10*3/uL (0.00-0.03); Imm Gran Pct Auto 0.2 % (0.0-0.4); Lymphocytes Absolute Auto 1.8 X10*3/uL (1.2-4.9); Lymphocytes Percent Auto 22.8 % (20-40); Mean Corpuscular HGB Conc 33.2 g/dl (31.0-35.0); Mean Corpuscular Hemoglobin 29.4 pg (27.0-33.0); Mean Corpuscular Volume 88.5 fL (80.0-98.0); Mean Platelet Volume 11.2 fL (9.4-12.3); Monocytes Absolute Auto 0.4 X10*3/uL (0.1-1.2); Monocytes Percent Auto 5.1 % (2-11); Neutrophils Absolute Auto 5.5 x10*3/uL (2.0-8.3); Neutrophils Percent Auto 68.5 % (45-73); Platelet Count 295 X10*3/uL (160-400); Red Blood Count 4.18 X10*6/uL (4.20-5.50)
[2023-07-15 17:14] LABS: Ferritin 61 ng/mL (10-250); TSH reflex Free T4 1.08 uIU/mL (0.32-4.0)
== END 2023-07-15 10:40 | disposition home or self-care (01) ==
LOC: HO.CHCLDS 10:39
PROVIDERS: Visit Provider Pediatrics
DX: R63.5 Abnormal weight gain (principal); G47.33 Obstructive sleep apnea (adult) (pediatric)
CPT/HCPCS: 36415; 82728; 84443; 85025

== ENCOUNTER 2024-09-14 10:23 | Outpatient (AMB) | payer OTHER, SELFPAY ==
--- NOTE | 2024-09-14 10:26 | MHC.OFFVIS ---
Vital Signs 09/14/24 10:41 Height 5 ft 2 in Weight 199 lb 8 oz BMI 36.5 BP 129/76 Blood Pressure Location Lt brachial Position Sitting Pulse 86 Intake Visit Reasons: hemorrhoids Intake Note: Patient is seen in office for evaluation of hemorrhoids. Pt c/o: admits to blood in the toilet after a bm, onset 2 wks, constipation, straining denies n/v/d Soft Crab Shedder Required: No Credit Associate: Credit Associate Present (Meche KATHLEEN) Accompanied by: Family/Other Allergies No Known Allergies Allergy (Verified 09/14/24 10:33) Medication List - Last Reconciled 09/14/24 by Sarthak Watt MD hydrochlorothiazide 25 mg PO DAILY HPI Comments Details: 44-year-old female patient presenting with complaints of rectal pain and bleeding. She reports a long history of constipation for almost her entire life. More recently the bowels have become more difficult to pass. For the past 2 weeks she has had daily bleeding with every bowel movement. The bleeding consist of bright red blood that sometimes persist after the bowel movement. She has been taking Colace with some improvement. She does report pain when passing her bowels or when wiping. She denies a previous history of hemorrhoid surgery. [facility] Medical History Fracture of right distal radius GERD (gastroesophageal reflux disease) Surgical History Hx of section History of loop electrical excision procedure (LEEP) Family History Father No problems noted. 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 Cognitive needs: No Hearing needs: No Vision needs: No Review of Systems Const All systems reviewed & are unremarkable except as noted in HPI and below Physical Exam Vital Signs: Last Vital Signs Pulse 86 09/14/24 10:41 BP 129/76 09/14/24 10:41 BMI result Body Mass Index 36.5 Const General: cooperative and no acute distress Nutritional Appearance: well nourished Orientation/consciousness: patient oriented x3 Limitations: no limitations HEENT Head: Yes normocephalic and Yes atraumatic Ears: hearing grossly normal bilaterally Resp Effort & Inspection: normal respiratory effort, no audible wheezes, no cough and no respiratory distress Cardio Jugular venous distension: no JVD GI Other: Anal examination: External exam: No evidence of perirectal abscess or thrombosed hemorrhoid, external tag identified suggestive of a sentinel pile. Digital rectal examination: Tenderness to palpation of the posterior midline adjacent to the sentinel pile. Hard ridge suggestive of anal fissure. Sphincter tone is markedly increased. Unable to examine beyond the anal canal. Anoscopic exam: Deferred due to pain. Inspection: Yes normal to inspection Skin Other: Warm, dry, no rash Neuro General: patient oriented x3 Extrem General: Yes no clubbing, cyanosis or edema Assessment & Plan Assessment & Plan (1) Anal fissure: Code(s): K60.2 - Anal fissure, unspecified Category: Medical Plan 44-year-old female patient presenting with complaints of anal pain, bleeding, and constipation. Examination is most consistent with an anal fissure although complete examination is not possible due to the pain. I recommended an exam under anesthesia to evaluate for anal fissure and internal hemorrhoids. If an anal fissures identified I would suggest a lateral internal sphincterotomy. On the other hand if hemorrhoids are identified, hemorrhoidectomy would be warranted. After discussion of the procedure, risks, and alternatives she consents to an exam under anesthesia, possible hemorrhoidectomy, possible lateral internal sphincterotomy. Coding Level of Care Code New Pt Level 4 (22330) Diagnoses Anal fissure K60.2
[2024-09-14 10:41] VITALS: BP 129/76; PULSE 86; BMI 36.5
--- OUTSIDE RECORDS SUMMARY | 2024-09-14 11:54 | XMS_ITS | Clinical Summary ---
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 90 tablet 1 12/29/19 24 Active witch charan-glycerin (Tucks) pad Apply topically if needed for irritation. 100 each 3 09/03/19 25 Active amoxicillin-clav ulanate (Augmentin) 875-125 MG tablet Take 1 tablet by mouth every 12 (twelve) hours. 03/01/20 22 025 Discontinued fluticasone (Flonase) 50 MCG/ACT nasal sprayIndications :Seasonal allergic rhinitis, unspecified trigger Administer 1-2 sprays into each nostril in the morning. 16 g 3 04/23/20 22 025 Discontinued Active Problems Problem Noted Date Diagnosed Date Elevated blood pressure read ing without diagnosis of hypertension 04/12/2022 History of 04/03/2022 History of tubal ligation 04/03/2022 History of loop electrosurgical excision procedu re (LEEP) 04/03/2022 History of malignant neoplasm of cervix 04/03/20 22 Encounters Date Type Department Care Team Description 09/02/2024 10:00 AM EDT Office Visit [facility] [address] [place] [address] Lyudmila Law MD Acute hemorrhoid (Primary Dx) 09/02/2024 Travel 09/01/2024 Travel 09/01/2024 Telephone [facility] [address], [place] [phone] Kendra Sepulveda MD Appointment Request; Nurse Triage from Last 3 Months Immunizations Name Administration Dates Next Due Influenza, IIV3, injectable 03/21/2022 Social History Tobacco Use Types Packs/Day Years Used Date Smoking Tobacco: Never Tobacco Cessation:Counseling Given: Not Answered Comments No Sex and Gender Information Value Date Recorded Sex Assigned at Female 03/11/2022 10:32 AM EDT Legal Sex Female 10:32 AM EDT Gender Identity Female 03/11/2022 10:32 AM EDT Sexual Orientation Straight 09/01/2024 7: 27 PM EDT Last Filed Vital Signs Vital Sign Reading Time Taken Comments Blood Pressure 144/100 09/02/2024 10:07 AM EDT Pulse 64 09/02/2024 10:07 AM EDT Temperature 36.1 ??C (97 ??F) 09/02/2024 10:07 AM EDT Respiratory Rate 18 09/02/2024 10:07 AM EDT Oxygen Saturation 97% 07/15/2023 9:52 AM EST Inhaled Oxygen Concentration - - Weight 91.2 kg (201 lb) 09/02/2024 10:07 AM EDT Height 157.5 cm (5' 2 ) 09/02/2024 10:07 AM EDT Body Mass Index 36.76 09/02/2024 10:07 AM EDT Plan of Treatment Upcoming Encounters Date Type Department Care Team (Late st Contact Info) Description 09/24/2024 9:45 AM EDT Office Visit [facility] [address] [place] [address] Kendra Sepulveda MD [address] [place] [address] Health Maintenance Due Date Last Done Comments Depression Screening 1980 HIV Screening 1980 SDOH Screening 1980 Alcohol/Substance Use Screening 1992 Family Planning (PISQ) 09/01/1995 Hepatitis C Screening 1998 DTaP/Tdap/Td Vaccines (1 - Tdap) 09/01/1999 Hepatitis B Vaccines (1 of 3 - 19+ 3-dose series) 09/01/1999 COVID-19 Vaccine (1 - 2023-2 5 season) 2024 Influenza Vaccine (#1) 2024 , 03/21/2022 Mammogram 11/06/2024 11/06/2022, 11/06/2022 Cervical Cancer Screening 03/21/2025 HPV/Cotest 03/21/2025 Pap Smear 03/21/2025 03/21/2022, 03/21/2022 Tobacco Screening 09/02/2025 09/02/2024 Lipid Panel 11/23/2028 11/24/2023, 03/21/2022 Zoster Vaccines (1 of 2) 2030 RSV Patients and Patients Aged 60 years or older (1 - 1-dose 75+ series) 09/01/2055 HIB Vaccines Aged Out No longer eligi ble based on patient's age to complete this topic HPV Vaccines Aged Out No longer eligi ble based on patient's age to complete this topic Hepatitis A Vaccines Aged Out No long er eligible based on patient's age to complete this topic IPV Vaccines Aged Out No longer eligi ble based on patient's age to complete this topic Meningococcal Vaccine Aged Out No yunior evelia eligible based on patient's age to complete this topic Pneumococcal Vaccine: Pediatrics (0 to 5 Years) and At-Risk Patients (6 to 49) Years) Aged Out No longer eligible b ased on patient's age to complete this topic RSV under 20 months Aged Out No longe r eligible based on patient's age to complete this topic Rotavirus Vaccines Aged Out No longer eligible based on patient's age to complete this topic Procedures Procedure Name Priority Date/Time Associated Diagnosis Comments LIPID PANEL, STANDARD Routine 11/24/2023 12:50 PM EDT BI MAMMOGRAM SCREENING TOMOSYNTHESIS BILATERAL Routine 11/06/2022 4:05 PM EDT THINPREP IMAGING SYSTEM PAP Routine 03/21/2022 10:10 AM EST from Last 3 Months or Most Recently Relevant to Health Maintenance Results * Lipid Panel, Standard (11/24/2023 12:50 PM EDT) Blood Venous blood specimen / Unknown us Historical Provider MD LAB BLOOD ORDERABLES Emily madera Result * BI Mammogram Screening Tomosynthesis Bilateral (11/06/2022 4:05 PM EDT) Anatomical Region Laterality Modality Breast Bilateral Mammography 11/06/2022 4:05 PM EDT Narrative 11/25/2022 12:52 PM EDT ? [facility] ? [address] ?[place] [address] ? Mammography Report ? Signed ? Patient: Weston Tripp ?MR#: ?? [id number] ? : 1980 ?Acct:[id number] ? Age/Sex: 42 / F ?ADM Date: 11/06/ ? Loc: HO.MAMMO ? Attending Dr: Kendra Sepulveda MD ? Ordering Physician: Kendra Sepulveda MD ?Results: ? Date of Service: 11/06/ ?Follow Up: ? Procedure(s): MM tomosynthesis screening BI ?? Accession Number(s): [id number] ? cc: Kendra Sepulveda MD ? EXAMINATION: ?? MM SCREENING DIGITAL BREAST TOMOSYNTHESIS, BILATERAL ? CLINICAL INFORMATION: ? Screening. Asymptomatic. ? The lifetime risk of breast cancer based on the Tyrer-Cuzick Model is ?? 16.4.%. ? COMPARISON: ?? Mammography: This study is compared with the prior mammogram from ?? 01/27/2021. ? TECHNIQUE: ?? Digital breast tomosynthesis is performed in both the craniocaudal and ?? mediolateral oblique views along with computer-aided detection (CAD). ?? Synthesized 2D images are generated from the tomosynthesis. ? FINDINGS: ?? The breasts are heterogeneously dense, which may obscure small masses ?? (ACR BI-RADS breast composition Category c). ? There are no significant masses, abnormal calcifications, or other ?? abnormalities. ? MM/MM tomosynthesis screening BI ?? IMPRESSION: ?? No mammographic evidence of malignancy. ? ASSESSMENT: ? BI-RADS BI-RADS 1 - Negative ? RECOMMENDATION: ?? Routine annual mammography screening. ? 1 year F/U ? This patient's information was entered into a reminder system with a ?? target due date for their next mammogram. ? Dictated By: ?Molly Lujan MD ? Signed By: ?<Electronically signed by Molly Lujan MD in OV> ? 11/25/22 1249 ? DD/ 1605 ? TD/TT: ? Subcontract Administrator: ? Procedure Note Marianna, Image - 11/25/2022 [facility] [address] [place] [address] Mammography Report Signed Patient: Bautista TrippeMR#: [id number] : 1980Acct:[id number] Age/Sex: 42 / FADM Date: 11/06/22 Loc: MAMMO Attending Dr: Kendra Sepulveda MD Ordering Physician: Kendra Sepulvedaults: Date of Service: 11/06/22Follow Up: Procedure(s): MM tomosynthesis screening BI Accession Number(s): [id number] cc: Kendra Sepulveda MD EXAMINATION: MM SCREENING DIGITAL BREAST TOMOSYNTHESIS, BILATERAL CLINICAL INFORMATION: Screening. Asymptomatic. The lifetime risk of breast cancer based on the Tyrer-Cuzick Model is 16.4.%. COMPARISON: Mammography: This study is compared with the prior mammogram from 01/27/2021. TECHNIQUE: Digital breast tomosynthesis is performed in both the craniocaudal and mediolateral oblique views along with computer-aided detection (CAD). Synthesized 2D images are generated from the tomosynthesis. FINDINGS: The breasts are heterogeneously dense, which may obscure small masses (ACR BI-RADS breast composition Category c). There are no significant masses, abnormal calcifications, or other abnormalities. MM/MM tomosynthesis screening BI IMPRESSION: No mammographic evidence of malignancy. ASSESSMENT: BI-RADS BI-RADS 1 - Negative RECOMMENDATION: Routine annual mammography screening. 1 year F/U This patient's information was entered into a reminder system with a target due date for their next mammogram. 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 The Pap is a screening test for cervical cancer. It is ?? not a diagnostic test and is subject to false negative ?? and false positive results. It is most reliable when a ?? satisfactory sample, regularly obtained, is submitted ?? with relevant clinical findings and history, and when ?? the Pap result is evaluated along with historic and ?? current clinical information. ?? COMMENT: This Pap test has been evaluated with computer assisted technology. CONVERTED LEGACY LABS Veneer Stapler : SEE COMMENT CONVERTED LEGACY LABS Comment: DANG, CT(ASCP) CT screening location: [address] ??[address] Interpretation/R esult: Negative for intraepithelial lesion or malignancy. CONVERTED LEGACY LABS LMP: [id number] CONVERTED LEGACY LABS Prev. BX: NONE GIVEN CONVERTED LEGACY LABS Prev. PAP: 2,018 CONVERTED LEGACY LABS Review [employer]eneer Stapler : SEE COMMENT CONVERTED LEGACY LABS Comment: ALYSSA, CT(ASCP) CT screening location: [address] ??[id number] SOURCE: Cervix CONVERTED LEGACY LABS Statement Of Adequacy: SEE COMMENT CONVERTED LEGACY LABS Comment: Satisfactory for evaluation. Endocervical/transformation zone component present. 03/21/2022 10:1 0 AM EST Kendra Sepulveda MD LAB PATHOLOGY ORDERABLES Emily madera Result CONVERTED LEGACY LABS from Last 3 Months or Most Recently Relevant to Health Maintenance Insurance [employer] Care Teams Metal Building Assembler Relationship Specialty Start Date End Date Kendra Sepulveda MD [address] [place] [id number] PCP - General Internal Medicine 03/27/22
--- OUTSIDE RECORDS SUMMARY | 2024-09-14 11:54 | XMS_ITS | Encounter Summary ---
Author Organization [employer] Address [address] [facility] 7 [place] [address] Care Team Providers Care Manager Field Investigations Name Role Phone Kendra Sepulveda MD Primary Care Provider [phone] Reason for Visit * Reason Onset Date Comments Referral 10/21/2023 Encounter Details Date Type Department Care Team (Late st Contact Info) Description 10/21/2023 Telephone [facility] MEDICINE [address] [place] [address] Kendra Sepulveda MD [address] [place] [address] Referral Social History Tobacco Use Types Packs/Day Years Used Date Smoking Tobacco: Never Comments Unknown Sex and Gender Information Value Date Recorded Sex Assigned at Female 03/11/2022 10:32 AM EDT Legal Sex Female 10:32 AM EDT Gender Identity Female 03/11/2022 10:32 AM EDT Sexual Orientation Straight 09/01/2024 7: 27 PM EDT documented as of this encounter Miscellaneous Notes * Telephone Encounter - Terri Fischer RN - 10/27/2023 11:06 AM EDT Please review and advise. Pt was last seen in July and discussed concerns of weight gain. No indication of speaking of Bariatric referral. Please advise if pt would need to be reseen for this particular issue. * Telephone Encounter - Eugenia Pelaez - 10/21/2023 1:16 PM EDT Tc from pt requesting a referral for bariatric surgery, stated discussed with PCP. [facility] Jennifer Rosado MD [phone] [address] [place] [address] Pt have appt with them on 11/03 documented in this encounter Plan of Treatment Upcoming Encounters Date Type Department Care Team (Late st Contact Info) Description 09/24/2024 9:45 AM EDT Office Visit [facility] MED & PEDS [address] [place] [address] Kendra Sepulveda MD [address] [place] [address] documented as of this encounter Visit Diagnoses Not on filedocumented in this encounter Care Teams Manager Field Investigations Relationship Specialty Start Date End Date Kendra Sepulveda MD [address] [place] [address] PCP - General Internal Medicine 03/27/22 documented as of this encounter
--- OUTSIDE RECORDS SUMMARY | 2024-09-14 11:54 | XMS_ITS | Encounter Summary ---
Author Organization [employer] Address [address] [place] [address] 7 [place] [address] Care Team Providers Care Fusion Analyst Name Role Phone Kendra Sepulveda MD Primary Care Provider [phone] Encounter Details Date Type Department Care Team (Late Contact Info) Description 11/24/2023 Orders Only [facility] [address] [place] [address] Provider, MD Colette Social History Tobacco Use Types Packs/Day Years Used Date Smoking Tobacco: Never Comments Unknown Sex and Gender Information Value Date Recorded Sex Assigned at Female 03/11/2022 10:32 AM EDT Legal Sex Female 10:32 AM EDT Gender Identity Female 03/11/2022 10:32 AM EDT Sexual Orientation Straight 09/01/2024 7: 27 PM EDT documented as of this encounter Plan of Treatment Upcoming Encounters Date Type Department Care Team (Late st Contact Info) Description 09/24/2024 9:45 AM EDT Office Visit [facility] CHC MED & PEDS [address] [place], [place] [phone] Kendra Sepulveda MD [address] [place] [address] documented as of this encounter Procedures Procedure Name Priority Date/Time Associated Diagnosis Comments TSH Routine 11/24/2023 1:58 PM EDT IRON AND TOTAL IRON BINDING CAPACITY Routine 11/24/2023 1:58 PM EDT C-REACTIVE PROTEIN Routine 11/24/2023 1: 57 PM EDT COMPREHENSIVE METABOLIC PANEL Routine 11/24/2023 1:55 PM EDT CBC (INCLUDES DIFFERENTIAL AND PLATELETS) W/SMEAR FOR EH Routine 11/24/2023 1:54 PM EDT PTH, INTACT AND CALCIUM Routine 11/24/19 1:51 PM EDT LIPID PANEL, STANDARD Routine 11/24/2023 12:50 PM EDT VITAMIN B12 Routine 11/24/2023 12:46 PM EDT HEMOGLOBIN A1C Routine 11/24/2023 12:38 PM EDT documented in this encounter Results * TSH (11/24/2023 1:58 PM EDT) Blood Venous blood specimen / Unknown Result [facility] LAB BLOOD ORDERABLES Emily l Result * Iron And Total Iron Binding Capacity (11/24/2023 1:58 PM EDT) Blood Venous blood specimen / Unknown Result [facility] LAB BLOOD ORDERABLES Emily l Result * C-reactive Protein (11/24/2023 1:57 PM EDT) Blood Venous blood specimen / Unknown Result [facility] Provider LAB BLOOD ORDERABLES Emily l Result * Comprehensive Metabolic Panel (11/24/2023 1:55 PM EDT) Blood Venous blood specimen / Unknown Result [facility] LAB BLOOD ORDERABLES Emily l Result * CBC (includes Differential and Platelets) w/Smear for Ehrlichia (11/24/2023 1:54 PM EDT) Blood Result [facility] LAB BLOOD ORDERABLES Emily l Result * PTH, Intact And Calcium (11/24/2023 1:51 PM EDT) Blood Venous blood specimen / Unknown Result [facility] Provider MD LAB BLOOD ORDERABLES Emily l Result * Lipid Panel, Standard (11/24/2023 12:50 PM EDT) Blood Venous blood specimen / Unknown Result [facility] Provider LAB BLOOD ORDERABLES Emily l Result * Vitamin B12 (11/24/2023 12:46 PM EDT) Blood Venous blood specimen / Unknown Result [facility] Provider LAB BLOOD ORDERABLES Emily l Result * Hemoglobin A1c (11/24/2023 12:38 PM EDT) Blood Venous blood specimen / Unknown Result [facility] Provider LAB BLOOD ORDERABLES Emily l Result documented in this encounter Visit Diagnoses Not on filedocumented in this encounter Care Teams Fusion Analyst Relationship Specialty Start Date End Date Kendra Sepulveda MD [address] [place] [address] PCP - General Internal Medicine 03/27/22 documented as of this encounter
--- OUTSIDE RECORDS SUMMARY | 2024-09-14 11:54 | XMS_ITS | Encounter Summary ---
Author Organization [employer] [facility] Address [address] [place] [address] 7 [place] [address] Care Team Providers Care Imitation [place] Mechanic Name Role Phone Kendra Sepulveda MD Primary Care Provider [phone] Encounter Details Date Type Department Care Team (Late st Contact Info) Description 10/16/2023 Orders Only [facility] MED & PEDS [address] [place] [address] Provider, MD Colette Social History Tobacco Use [...] Description 09/24/2024 9:45 AM EDT Office Visit [facility] MED & PEDS [address] [place] [address] Kendra Sepulveda MD [address] [place] [address] documented as of this encounter Procedures Procedure Name Priority Date/Time Associated Diagnosis Comments POLYSOMNOGRAM Routine 10/12/2023 12:40 PM EDT documented in this encounter Results * Polysomnography (10/12/2023 12:40 PM EDT) Historical Provider [facility] ORDERABLES F inal Result documented in this encounter Visit Diagnoses Not on filedocumented in this encounter Care Teams Imitation [place] Mechanic Relationship Specialty Start Date End Date Kendra Sepulveda MD [address] [place] [address] PCP - General Internal Medicine 03/27/22 documented as of this encounter
--- OUTSIDE RECORDS SUMMARY | 2024-09-14 11:54 | XMS_ITS | Encounter Summary ---
Author Organization [employer] [facility] Address [address] [place] [address] 7 [place] [address] Care Team Providers Care Plug Grower Name Role Phone Kendra Sepulveda MD Primary Care Provider Encounter Details Date Type Department Care Team (Late st Contact Info) Description 03/16/2024 Orders Only [facility] MED & PEDS [address] [place] [address] Provider, MD Colette Social History Tobacco Use [...] Description 09/24/2024 9:45 AM EDT Office Visit [facility] MED & PEDS [address] [place] [address] Kendra Sepulveda MD [address] [place] [address] documented as of this encounter Procedures Procedure Name Priority Date/Time Associated Diagnosis Comments VITAMIN D,25-OH,TOTAL,IA Routine 03/16/2024 12:27 PM EST documented in this encounter Results * Vitamin D, 25-Hydroxy, Total, Immunoassay (03/16/2024 12:27 PM EST) Blood us Historical Provider LAB BLOOD ORDERABLES Emily l Result documented in this encounter Visit Diagnoses Not on filedocumented in this encounter Care Teams Plug Grower Relationship Specialty Start Date End Date Kendra Sepulveda MD [address] [place] [address] PCP - General Internal Medicine 03/27/22 documented as of this encounter
--- OUTSIDE RECORDS SUMMARY | 2024-09-14 11:54 | XMS_ITS | Encounter Summary ---
Author Organization [employer] Address [address] [facility] 7 [place] [address] Care Team Providers Care Breakfast Manager Name Role Phone Kendra Sepulveda MD Primary Care Provider [phone] Reason for Visit * Reason Onset Date Comments Appointment Request 09/01/2024 Nurse Triage 09/01/2024 Encounter Details Date Type Department Care Team ([facility] st Contact Info) Description 09/01/2024 Telephone [facility] MEDICINE [address] [place] [address] Kendra Sepulveda MD [address] [place] [address] Appointment Request; Nurse Triage Social History Tobacco Use Types Packs/Day Years Used Date Smoking Tobacco: Never Comments Unknown Sex and Gender Information Value Date Recorded Sex Assigned at Female 03/11/2022 10:32 AM EDT Legal Sex Female 10:32 AM EDT Gender Identity Female 03/11/2022 10:32 AM EDT Sexual Orientation Straight 09/01/2024 7: 27 PM EDT documented as of this encounter Miscellaneous Notes * Telephone Encounter - Araceli Klein RN - 09/01/2024 4:22 PM EDT Triage call Pt reports Hx of chronic constipation. Pt does take miralax daily and a high fiber diet. Pt has been seeing blood in the toilet bowl the last 2-3 days. Pt does have hemorrhoids . Neg for blood clots noted or abdominal pain. Pt requests to be seen in [facility] . Apt in [facility] 09/02/24 @ 1000. Pt agrees with this disposition. Insurance is verified as active prior to booking. Pt is drinking adequate liquids. Protocol Used: Rectal Bleeding (Adult) Protocol-Based Disposition: See in Office or Video Visit within 3 Days Video visit not offered Positive Triage Question: * Mild rectal bleeding (more than just a few drops or streaks) * All higher-acuity triage questions were negative Care Advice Discussed: * Reassurance and Education - Mild Rectal Bleeding * High Fiber Diet * Reasons To Call Back - Bleeding increases in amount - Bleeding occurs 3 or more times after using Care Advice - You become worse * Telephone Encounter - Monse Bustillos - 09/01/2024 3:47 PM EDT Symptom: Constipation Outcome: Schedule an appointment to be seen within 24 hours Reason: Caller denied all higher acuity questions The caller accepted this outcome. documented in this encounter Plan of Treatment Upcoming Encounters Date Type Department Care Team (Late st Contact Info) Description 09/24/2024 9:45 AM EDT Office Visit [facility] MED & PEDS [address] [place] [address] Kendra Sepulveda MD [address] [place] [address] documented as of this encounter Visit Diagnoses Not on filedocumented in this encounter Care Teams Breakfast Manager Relationship Specialty Start Date End Date Kendra Sepulveda MD [address] [place] [address] PCP - General Internal Medicine 03/27/22 documented as of this encounter
--- OUTSIDE RECORDS SUMMARY | 2024-09-14 11:55 | XMS_ITS | Encounter Summary ---
Author Organization [email or web address] Address [address] [place] [address] 7 [place] [address] Care Team Providers Care Parts Sales Advisor Name Role Phone Kendra Sepulveda MD Primary Care Provider [phone] Encounter Details Date Type Department Care Team (Late Contact Info) Description 11/27/2023 Orders Only [facility] [address] [place] [address] Provider, MD Colette Social History Tobacco Use [...] Encounters Date Type Department Care Team (Late Contact Info) Description 09/24/2024 9:45 AM EDT Office Visit [facility] CHC MED & PEDS [address] [place], [place] [phone] Kendra Sepulveda MD [address] [place] [address] documented as of this encounter Procedures Procedure Name Priority Date/Time Associated Diagnosis Comments VITAMIN A Routine 11/24/2023 11:09 AM EDT documented in this encounter Results * Vitamin A (11/24/2023 11:09 AM EDT) Blood Venous blood specimen / Unknown Historical Provider LAB BLOOD ORDERABLES Emily l Result documented in this encounter Visit Diagnoses Not on filedocumented in this encounter Care Teams Parts Sales Advisor Relationship Specialty Start Date End Date Kendra Sepulveda MD [address] [place] [address] PCP - General Internal Medicine 03/27/22 documented as of this encounter
--- OUTSIDE RECORDS SUMMARY | 2024-09-14 11:55 | XMS_ITS | Encounter Summary ---
Author Organization [employer] [facility] Address [address] [place] [address] 7 [place] [address] Care Team Providers Care Hop Worker Name Role Phone Kendra Sepulveda MD Primary Care Provider [phone] Encounter Details Date Type Department Care Team (Late Contact Info) Description 11/26/2023 Orders Only [facility] [address] [place] [address] Provider, MD Colette Social History Tobacco Use [...] 09/24/2024 9:45 AM EDT Office Visit [facility] CHC MED & PEDS [address] [place], [place] [phone] Kendra Sepulveda MD [address] [place] [address] documented as of this encounter Procedures Procedure Name Priority Date/Time Associated Diagnosis Comments ZINC Routine 11/24/2023 2:54 PM EDT documented in this encounter Results * Zinc (11/24/2023 2:54 PM EDT) Blood Venous blood specimen / Unknown us Historical Provider LAB BLOOD ORDERABLES Emily l Result documented in this encounter Visit Diagnoses Not on filedocumented in this encounter Care Teams Hop Worker Relationship Specialty Start Date End Date Kendra Sepulveda MD [address] [place] [address] PCP - General Internal Medicine 03/27/22 documented as of this encounter
--- OUTSIDE RECORDS SUMMARY | 2024-09-14 11:55 | XMS_ITS | Encounter Summary ---
Author Organization [employer] [facility] Address [address] [place] [address] 7 [place] [address] Care Team Providers Care Executive Sales Assistant Name Role Phone Kendra Sepulveda MD Primary Care Provider [phone] Encounter Details Date Type Department Care Team (Late Contact Info) Description 11/25/2023 Orders Only [facility] [address] [place] [address] Provider, MD Colette Social History Tobacco Use [...] Description 09/24/2024 9:45 AM EDT Office Visit [facility] CHC MED & PEDS [address] [place], [place] [phone] Kendra Sepulveda MD [address] [place] [address] documented as of this encounter Procedures Procedure Name Priority Date/Time Associated Diagnosis Comments INSULIN Routine 11/24/2023 9:49 AM EDT documented in this encounter Results * Insulin (11/24/2023 9:49 AM EDT) Blood Venous blood specimen / Unknown us Historical Provider LAB BLOOD ORDERABLES Emily l Result documented in this encounter Visit Diagnoses Not on filedocumented in this encounter Care Teams Executive Sales Assistant Relationship Specialty Start Date End Date Kendra Sepulveda MD [address] [place] [address] PCP - General Internal Medicine 03/27/22 documented as of this encounter
== END 2024-09-14 10:53 | disposition home or self-care (01) ==
LOC: HO.HGS 10:24
PROVIDERS: PCP Pediatrics; Visit Provider Surgery
DX: K60.2 Anal fissure, unspecified (principal)
CPT/HCPCS: 99204

== ENCOUNTER → 2024-09-14 10:23 | Outpatient (BNVA) | payer OTHER, SELFPAY | PROVIDERS: PCP Pediatrics; Visit Provider Surgery ==

== ENCOUNTER 2024-10-27 08:05 | Day surgery (SDC) | payer OTHER, SELFPAY ==
[2024-10-25 09:02] VITALS: BMI 36.4
--- OUTSIDE RECORDS SUMMARY | 2024-10-25 12:45 | XMS_ITS | Clinical Summary ---
Author Organization [employer] Address [address] [facility] 7t [place] [address] Care Team Providers Care Territory Sales Consultant Name Role Phone Kendra Sepulveda MD Primary Care Provider [phone] Allergies No known active allergies Medications hydroCHLOROthiazi de (HYDRODiuril) 25 MG tabletIndications :Elevated blood pressure reading without diagnosis of hypertension Take 1 tablet (25 mg) by mouth Once per day. 90 tablet 1 4 Active witch charan-glycerin (Tucks) pad Apply topically if needed for irritation. 100 each 3 5 Active topiramate (Topamax) 50 MG tablet Take 1 tablet (50 mg) by mouth Once per day. 30 tablet 3 5 Active Active Problems Problem Noted Date Diagnosed Date Class 2 severe obesity due t o excess calories with serious comorbidity and body mass index (BMI) of 37.0 to 37.9 in adult 11/04/2023 Primary hypertension 11/04/2023 History of 04/03/2022 History of tubal ligation 04/03/2022 History of loop electrosurgical excision procedu re (LEEP) 04/03/2022 History of malignant neoplasm of cervix 04/03/20 22 Resolved Problems Problem Noted Date Diagnosed Date Resolved Date Elevated blood pressure read ing without diagnosis of hypertension 04/12/2022 09/27/2024 Encounters Date Type Department Care Team Description 09/24/2024 9:45 AM EDT Office Visit [facility] MED & PEDS [address] [place] [address] Kendra Sepulveda MD Primary hypertension (Primary Dx); Dietary counseling; Exercise counseling; Class 2 severe obesity due to excess calories with serious comorbidity and body mass index (BMI) of 37.0 to 37.9 in adult ([facility]) 09/24/2024 Travel 09/17/2024 Travel 09/02/2024 10:00 AM EDT Office Visit [facility] MED & PEDS [address] [place] [address] Lyudmila Law MD Acute hemorrhoid (Primary Dx) 09/02/2024 Travel 09/01/2024 Travel 09/01/2024 Telephone [facility] MEDICINE [address] [place] [address] Kendra Sepulveda MD Appointment Request; Nurse Triage from Last 3 Months Immunizations Immunization Administration Dates Next Due Influenza, IIV3, injectable [...] Sign Reading Time Taken Comments Blood Pressure 140/80 09/24/2024 10:20 AM EDT Pulse 63 09/24/2024 9:49 AM EDT Temperature 37.1 ??C (98.7 ??F) 09/24/2024 9:49 AM ED T Respiratory Rate 20 09/24/2024 9:49 AM EDT Oxygen Saturation 97% 07/15/2023 9:52 AM EST Inhaled Oxygen Concentration - - Weight 90.3 kg (199 lb) 09/24/2024 9:49 AM EDT Height 157.5 cm (5' 2 ) 09/24/2024 9:49 AM EDT Body Mass Index 36.4 09/24/2024 9:49 AM EDT Plan of Treatment Upcoming Encounters Date Type Department Care Team ([facility] st Contact Info) Description 12/24/2024 9:00 AM EDT Office Visit [facility] MED & PEDS [address] [place] [address] Kendra Sepulveda MD [address] [place] [address] Health Maintenance Due Date Last Done Comments Depression Screening 1980 HIV Screening 1980 SDOH Screening 1980 Alcohol/Substance Use Screening 1992 Family Planning (PISQ) 09/01/1995 Hepatitis C Screening 1998 DTaP/Tdap/Td Vaccines (1 - Tdap) 09/01/1999 Hepatitis B Vaccines (1 of 3 - 19+ 3-dose series) 09/01/1999 COVID-19 Vaccine (1 - 2023-2 5 season) 2024 Mammogram 11/06/2024 11/06/2022, 11/06/2022 Influenza Vaccine (Season Ended) 2025 03/21/2022, 03/21/2022 Cervical Cancer Screening 03/21/2025 HPV/Cotest 03/21/2025 Pap Smear 03/21/2025 03/21/2022, 03/21/2022 Disability Screening 09/01/2025 09/01/2024 Tobacco Screening 09/02/2025 09/02/2024 Lipid Panel 11/23/2028 [...] patient's age to complete this topic Meningococcal B Vaccine Aged Out No l onger eligible based on patient's age to complete this topic Meningococcal Vaccine Aged Out No yunior evelia eligible based on patient's age to complete this topic Pneumococcal Vaccine: Pediatrics (0 to 5 Years) and At-Risk Patients (6 to 49) Years Aged Out No longer eligible b ased [...] Unknown Historical Provider LAB BLOOD ORDERABLES Emily madera Result * BI Mammogram Screening Tomosynthesis Bilateral (11/06/2022 4:05 PM EDT) Anatomical Region Laterality Modality Breast Bilateral Mammography 11/06/2022 4:05 PM EDT Narrative 11/25/2022 12:52 PM EDT ? [facility] ? [address] ?[place] [address] ? Mammography Report ? Signed ? Patient: Weston Tripp ?MR#: ?? [id number] ? : 1980 ?Acct:[id number] ? Age/Sex: 42 / F ?ADM Date: 06/28/23 ? Loc: HO.MAMMO ? Attending Dr: Kendra Sepulveda MD ? Ordering Physician: Kendra Sepulveda MD ?Results: ? Date of Service: 11/06/22 ?Follow Up: ? Procedure(s): MM tomosynthesis screening BI ?? Accession Number(s): [id number] ? cc: Kendra Sepulveda MD ? EXAMINATION: [...] in OV> ? 11/25/22 1249 ? DD/ ? TD/TT: ? Sales Account Associate: ? Procedure Note Janine Cabral - 11/25/2022 [facility] [address] [place], [place] [address] Mammography Report Signed Patient: Geoff TrippR#: [id number] : 1980Acct:[id number] Age/Sex: 42 / FADM Date: 11/06/22 Loc: HO.MAMMO Attending Dr: Kendra Sepulveda MD Ordering Physician: Kendra Sepulveda MDResults: Date of Service: 11/06/22Follow Up: Procedure(s): MM tomosynthesis screening BI Accession Number(s): [id number] cc: Kendra Sepulveda MD EXAMINATION: MM SCREENING [...] in OV> 11/25/22 1249 DD/ 1605 TD/TT: Sales Account Associate: [facility] External Provider IMG BI PROCEDURES Final Result * THINPREP TIS PAP (03/21/2022 10:10 AM EST) Clinical Information: HEALTH CARE COORDINATOR MALIGNANCY; HX/RX CONVERTED LEGACY LABS COMMENT SEE [...] with computer assisted technology. CONVERTED LEGACY LABS Edge Gluer : SEE COMMENT CONVERTED LEGACY LABS Comment: DANG, CT(ASCP) CT screening location: [address] ??[address] Interpretation/R esult: Negative for intraepithelial lesion or malignancy. CONVERTED LEGACY LABS LMP: [id number] CONVERTED LEGACY LABS Prev. BX: NONE GIVEN CONVERTED LEGACY LABS Prev. PAP: 2,018 CONVERTED LEGACY LABS Review [employer] : SEE COMMENT CONVERTED LEGACY LABS Comment: ALYSSA, CT(ASCP) CT screening location: [address] ??[address] SOURCE: Cervix CONVERTED LEGACY LABS Statement Of Adequacy: SEE COMMENT CONVERTED LEGACY LABS Comment: Satisfactory for evaluation. Endocervical/transformation zone component present. 03/21/2022 10:1 0 AM EST us Kendra Sepulveda MD LAB PATHOLOGY ORDERABLES Emily madera Result Performing Organization Address City/State/[facility] Co de Phone Number CONVERTED LEGACY LABS from Last 3 Months or Most Recently Relevant to Health Maintenance Insurance [id number] Care Teams Territory Sales Consultant Relationship Specialty Start Date End Date Kendra Sepulveda MD [address] [place] [address] PCP - General Internal Medicine 03/27/22
--- NOTE | 2024-10-26 09:03 | HO.ANESPROP2 ---
Documented by User: Romana Vaughan NP 10/26/24 09:03 HPI - Anesthesia Eval Consult details Narrative: 44yo F for EUA, possible Hemorrhoidectomy, possible lateral internal Sphincterotomy PMFSH Active Problems Active Problems: All Active Problems Anal fissure (Acute) Fracture of right distal radius (Acute) Scapular fracture (Acute) Dermatitis (Acute) Physical exam (Acute) Cervical pain (neck) (Acute) Varicose veins of left lower extremity with inflammation (Acute) Weight gain (Acute) Spider veins (Acute) Past Medical History Medical History Fracture of right distal radius GERD (gastroesophageal reflux disease) Family History Family History Father No problems noted. 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 Cognitive needs: No Hearing needs: No Vision needs: No Meds Allergies Allergy/AdvReac Type Severity Reaction Status Date / Time No Known Allergies Allergy Verified 09/14/24 10:33 Home Medications ?Medication ?Instructions ?Recorded ?Confirmed ?Last Taken ?Type hydrochlorothiazide 25 mg tablet 25 mg PO DAILY 09/14/24 09/14/24 Unknown History Exam Height,Weight and Vital Signs: Height 5 ft 2 in Weight 90.265 kg Assessment and Plan Assessment Anesthesia Assessment: Chart Reviewed Documented by User: Sandra Anguiano MD 10/27/24 08:25 PMFSH Past Medical History Medical History Fracture of right distal radius GERD (gastroesophageal reflux disease) Family History Family History Father No problems noted. Mother Diabetes Maternal Aunt Mental health disorder Maternal Aunt Mental health disorder Family history of problems with anesthesia: No Surgical History Surgical History Hx of section History of loop electrical excision procedure (LEEP) History of Problems with Anesthesia: No Social History Social History Housing: House Unable to assess alcohol history related to: Unable to respond Alcohol intake: never Patient Tobacco Use Status: Never used Tobacco e-Cigarette/Vaping Use: Never Used Second Hand Smoke Exposure: No Advance Directives: No Advance Directives Information Provided: Yes service: No Current occupational status: employed 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 Cognitive needs: No Hearing needs: No Vision needs: No Meds Allergies Allergy/AdvReac Type Severity Reaction Status Date / Time No Known Allergies Allergy Verified 09/14/24 10:33 Home Medications ?Medication ?Instructions ?Recorded ?Confirmed ?Last Taken ?Type hydrochlorothiazide 25 mg tablet 25 mg PO DAILY 09/14/24 09/14/24 Unknown History Exam Airway Mallampati Class: II TM Dist: >3cm Neck ROM: Full Heart: rrr Lungs: cta Assessment and Plan Assessment Anesthesia Assessment: Anesthesia Plan Discussed Final Anesthetic Review Family History of Problems with Anesthesia: No History of Problems with Anesthesia: No NPO: Yes ASA Class: II Final Preanesthetic Review: No Changes in Pt Med Stat, Meds/Allgs Chart Reviewed and Consent Obtained/Reviewed Patient Risk: Low Procedure Risk: Low Anesthetic Plan Anesthetic Plan: GA Disposition: Standard PACU
[2024-10-27 08:24] VITALS: BP 153/100; PULSE 76; RESP 20; TEMP 36.5; O2SAT 97
[2024-10-27 08:25] LABS: UPreg QC Valid YES; Urine Pregnancy NEGATIVE (NEGATIVE)
[2024-10-27] MEDS: Lactated Ringers 1,000 ML 100 ML IVCONT (08:30)
--- NOTE | 2024-10-27 08:47 | MHC.SHP ---
Pre-Procedural Eval Section A - 24 Hr Update-Section A only Date of Service: 10/27/24 The patient is an INPATIENT: No Changes since office visit: Yes Patient answered all questions; No Cold of Flu in the past 2 weeks, No New Medical Problems and No Changes in Medication The patient has been examined within 24 hours of the surgical procedure. The History & Physical has been completed within 30 days and I have reviewed it.: No Section B - Complete if H&P > 30 days Chief Complaint: Anal fissure, unspecified Details of Present Illness: No change in the patient's symptoms, continued perianal pain Relevant Family History (Specify if Yes): No Relevant Social History: None Present Medications: see Short Stay Collaborative assessment Medical History: No relevant PMH History of Previous Operations: No relevant previous surgery Allergies: Allergies Allergy/AdvReac Type Severity Reaction Status Date / Time No Known Allergies Allergy Verified 09/14/24 10:33 Review of Systems Sugical H&P ROS: Negative: Constitution, Cardiovascular, Respiratory, Neurological, Psychiatric, Hem-Onc, Allergic/Immunologic, Gastrointestinal, Genitourinary, Musculoskeletal, Integumentary, Endocrine and Eyes/Ears/Nose/Throat Exam Surgical H&P Exam: Normal: HEENT, Normal: Heart, Normal: Lungs, Normal: Extremities, Normal: Abdomen, Normal: Skin and Normal: Neurological Plan Diagnosis/Plan: Unchanged I have reviewed the history and physical and performed a pertinent physical examination on my patient. No changes have occurred unless specified. Time Spent With Patient Time: Total time managing care of this patient today ____ minutes.
[2024-10-27] MEDS: cefoTEtan disodium 2 GM VIAL IVPUSH (09:00)
--- NOTE | 2024-10-27 09:41 | P.OP_ITS ---
Operative Note Operative Note Date of Service: 10/27/24 Narrative: Preoperative diagnosis: Anal pain and bleeding Postoperative diagnosis: Prolapsing internal hemorrhoid grade 3 Procedure: Hemorrhoidectomy Surgeon: Sarthak Watt MD Finishing Supervisor Plastic Sheets: LEONELA Jewell Anesthesia: General LMA Indications for procedure: 44-year-old female patient presenting with complaints of perianal pain and bleeding. She was evaluated in the office and exam difficult due to the severity of her pain. She presents today for an exam under anesthesia and possible hemorrhoidectomy or lateral internal sphincterotomy. Operative findings: No external thrombosed hemorrhoid, no perirectal abscess, no anal fissure. Normal sphincter tone was identified. Two enlarged hemorrhoids were identified, 1 located at the 7 o'clock position a 2nd in the 11 o'clock position. The 11:00 hemorrhoid was small and noninflamed. The 07:00 hemorrhoid however was quite large and prolapsing. This probable symptomatic hemorrhoid was removed today. Specimen: Hemorrhoid x1 Estimated blood loss: Less than 2 mL Complications: None Procedure details: Patient was brought to the OR and placed in a supine position. After administering general anesthesia she was placed in the lithotomy position. The perianal skin was prepped with Betadine and draped in a sterile fashion. A surgical time-out was called the consent confirmed. Patient received preoperative antibiotics and Venodyne boots were in place. Exam under anesthesia was then performed using an anoscope. The above findings were noted. Attention was then directed to the hemorrhoid at the 7 o'clock position. The hemorrhoid was grasped with a Shrestha clamp and a Bette placed below this to grasp the entire hemorrhoid. A 3-0 chromic suture was then placed at the base of the hemorrhoid and tied. A baseball stitch was then performed below the clamp. The hemorrhoid was then cut above the clamp. The suture was then continued from distal to proximal in a running locked fashion. Excellent hemostasis was achieved. The suture was tied. Examination of the remaining anal mucosa was otherwise normal. Wounds were checked for hemostasis. A packing created with a 4 x 4 gauze wrapped in a Xeroform pad was then placed into the anal canal. Sterile dressings including an ABD pad and mesh panties were then applied. The patient tolerated the procedure well. Sponge, instrument, and needle counts reported as correct. The patient was transferred to PACU in stable condition.
[2024-10-27 09:47] VITALS: BP 115/61; PULSE 112; RESP 40; TEMP 36.1; O2SAT 96
[2024-10-27 09:52] VITALS: BP 124/75; PULSE 101; RESP 31; O2SAT 93
[2024-10-27 09:57] VITALS: BP 121/80; PULSE 91; RESP 29; O2SAT 95
[2024-10-27 10:02] VITALS: BP 131/83; PULSE 102; RESP 16; O2SAT 98
[2024-10-27 10:19] VITALS: BP 137/85; PULSE 71; RESP 20; TEMP 36.4; O2SAT 98
== END 2024-10-27 10:50 | disposition home or self-care (01) ==
PROVIDERS: Nurse Practitioner; PCP Pediatrics; Visit Provider Surgery
PROC: (CPT 46255; principal; 2024-10-27 09:30)
PROC: (CPT 46255; 2024-10-27 09:30)
DX: K64.2 Third degree hemorrhoids (principal); K62.89 Other specified diseases of anus and rectum; K62.5 Hemorrhage of anus and rectum; K59.00 Constipation, unspecified; K21.9 Gastro-esophageal reflux disease without esophagitis; Z79.899 Other long term (current) drug therapy
CPT/HCPCS: 46255; 81025; 88304; J0131; J1100; J1885; J2003; J2250; J2405; J2704; J3010

== ENCOUNTER → 2024-10-27 08:05 | Outpatient (BNV) | payer OTHER, SELFPAY | PROVIDERS: PCP Pediatrics; Visit Provider Surgery | DX: K64.8 Other hemorrhoids (principal) | CPT/HCPCS: 46255 ==

== ENCOUNTER 2024-11-05 10:13 | Outpatient (AMB) | payer OTHER, SELFPAY ==
--- NOTE | 2024-11-05 10:17 | MHC.OFFVIS ---
Vital Signs 11/05/24 10:41 Height 5 ft 2 in Weight 201 lb BMI 36.8 BP 135/87 Blood Pressure Location Lt brachial Position Sitting Pulse 78 Intake Visit Reasons: S/P hemorrhoidectomy, pos lat. internal sphnctrtmy Intake Note: Patient is seen in office for post op assessment post Hemorrhoidectomy. Pt c/o: admits to bleeding, increase pain, constipation, straining, tried stool softener with no relief surgery:10/27/24 Licensed Nuclear Operator Required: No Teacher Aide: Teacher Aide Present Accompanied by: Family/Other Allergies No Known Allergies Allergy (Verified 11/05/24 10:19) Medication List - Last Reconciled 11/05/24 by Sarthak Watt MD hydrochlorothiazide 25 mg PO DAILY hydrocortisone 2.5% 1 appl AL BID-QID PRN lidocaine HCl 2% 1 appl topical BID PRN oxycodone 5 mg PO Q6H PRN HPI Comments Details: 44-year-old female patient returning 1 week following hemorrhoidectomy for painful hemorrhoids with bleeding. She reports swelling extending through the anal canal which is painful. She has some bleeding noted on a daily basis. She is applying a tucks pad to the site which seems to be collecting the blood. Her bowels were initially okay but now have become a little bit more difficult to pass despite taking magnesia in his stool softener. She has not tried MiraLax. [facility] Medical History Fracture of right distal radius GERD (gastroesophageal reflux disease) Surgical History H/O hemorrhoidectomy (10/27/24) Hx of tubal ligation Hx of section History of loop electrical excision procedure (LEEP) Family History Father No problems noted. 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 No prolapsing hemorrhoids were identified. Neuro General: patient oriented x3 Extrem General: No edema Assessment & Plan Assessment & Plan (1) Internal hemorrhoid, bleeding: Code(s): K64.8 - Other hemorrhoids Category: Medical Plan Recommend continuing Sitz baths and adding hydrocortisone cream and lidocaine gel to the external hemorrhoid twice daily. She should follow up in approximately 2 weeks for wound examination. I would also recommend adding MiraLax for the constipation. Medications: New hydrocortisone 2.5% 1 appl AL BID-QID PRN 30 grams 0RF hemorrhoids lidocaine HCl 2% Apply to external hemorrhoid as needed for pain 1 appl topical BID PRN 30 mL 0RF pain Coding Level of Care Code Global (91233) Diagnoses Internal hemorrhoid, bleeding K64.8
[2024-11-05 10:41] VITALS: BP 135/87; PULSE 78; BMI 36.8
== END 2024-11-05 10:43 | disposition home or self-care (01) ==
LOC: HO.HGS 10:14
PROVIDERS: PCP Pediatrics; Visit Provider Surgery
DX: K64.8 Other hemorrhoids (principal)
CPT/HCPCS: 99024

== ENCOUNTER 2024-11-19 10:05 | Outpatient (AMB) | payer OTHER, SELFPAY ==
--- NOTE | 2024-11-19 10:19 | MHC.OFFVIS ---
Vital Signs 11/19/24 10:24 Height 5 ft 2 in Weight 200 lb 13.458 oz BMI 36.7 BP 130/82 Blood Pressure Location Lt brachial Position Sitting Intake Visit Reasons: S/P hemorrhoidectomy, pos lat. internal sphnctrtmy Intake Note: Patient is seen in office for 2 weeks follow up visit, post hemorrhoidectomy. Pt c/o: denies pain, bleeding, bm are good, still feels something in the outside Allergies No Known Allergies Allergy (Verified 11/05/24 10:19) Medication List - Last Reconciled 11/19/24 by Sarthak Watt MD hydrochlorothiazide 25 mg PO DAILY HPI Comments Details: Patient returns for follow-up examination after a hemorrhoidectomy on 10/27/2024. She feels much improved with no further pain or bleeding. She still feels a lump in the anal skin but denies any pain associated with this. Her bowels are much improved with no pain having a bowel movement. PFSH Medical History Fracture of right distal radius GERD (gastroesophageal reflux disease) Surgical History H/O hemorrhoidectomy (10/27/24) Hx of tubal ligation Hx of section History of loop electrical excision procedure (LEEP) Family History Father No problems noted. 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 Wounds are clean and intact. No tenderness to palpation. No evidence of prolapsing internal hemorrhoids. Skin General skin exam: no rashes or lesions noted Neuro General: patient oriented x3 Assessment & Plan Assessment & Plan (1) Internal hemorrhoid, bleeding: Code(s): K64.8 - Other hemorrhoids Category: Medical Plan 44-year-old female patient status post EUA and hemorrhoidectomy. Wounds are clean and intact without evidence of ongoing bleeding or infection. She feels much improved and reports normal bowel movements. She should follow up as needed. Coding Level of Care Code Global (75021) Diagnoses Internal hemorrhoid, bleeding K64.8
[2024-11-19 10:24] VITALS: BP 130/82; BMI 36.7
--- OUTSIDE RECORDS SUMMARY | 2024-11-19 10:31 | XMS_ITS | Clinical Summary ---
Author Organization [employer] Address [address] [place] [address] Care Team Providers Care Shiftman Name Role Phone Kendra Sepulveda MD Primary Care Provider [phone] Allergies No known active allergies Medications hydroCHLOROthiazi [...] History of malignant neoplasm of cervix 04/03/20 Resolved Problems Problem Noted Date Diagnosed Date Resolved Date Elevated blood pressure read ing without diagnosis of hypertension 04/12/2022 09/27/2024 Encounters Date Type Department Care Team Description 10/27/2024 Orders Only GENERIC EXTERNAL DATA DEPARTMENT Provider, Generic External Data 09/24/2024 9:45 AM EDT Office Visit [facility] [address] [place] [address] Kendra Sepulveda MD Primary hypertension (Primary Dx); Dietary counseling; Exercise counseling; Class 2 severe obesity due to excess calories with serious comorbidity and body mass index (BMI) of 37.0 to 37.9 in adult ([facility]) 09/24/2024 Travel 09/17/2024 Travel 09/02/2024 10:00 AM EDT Office Visit [facility] [address] [place] [address] Lyudmila Law MD Acute hemorrhoid (Primary Dx) 09/02/2024 Travel 09/01/2024 Travel 09/01/2024 Telephone [facility] [address] [place], [place] [phone] Kendra Sepulveda MD Appointment Request; Nurse Triage [...] 63 09/24/2024 9:49 AM EDT Temperature 37.1 C (98.7 F) 09/24/2024 9:49 AM EDT Respiratory Rate 20 09/24/2024 9:49 AM EDT Oxygen Saturation 97% 07/15/2023 9:52 AM EST Inhaled Oxygen Concentration - - Weight 90.3 kg (199 lb) 09/24/2024 9:49 AM EDT Height 157.5 cm (5' 2 ) 09/24/2024 9:49 AM EDT Body Mass Index 36.4 09/24/2024 9:49 AM EDT Plan of Treatment Upcoming Encounters Date Type Department Care Team (Late st Contact Info) Description 12/24/2024 9:00 AM EDT Office Visit [facility] [address] [place] [address] Kendra Sepulveda MD [address] [place] [address] Health Maintenance Due Date Last Done Comments Depression Screening 1980 HIV Screening 1980 SDOH Screening 1980 Alcohol/Substance Use Screening 1992 Family Planning (PISQ) 09/01/1995 Hepatitis C Screening 1998 Hepatitis B Vaccines (1 of 3 - 19+ 3-dose series) 09/01/1999 DTaP/Tdap/Td Vaccines (2 - Td or Tdap) 01/02/2022 01/03/2012 COVID-19 Vaccine (3 - season) 2024 07/07/2020, 06/09/2020 Mammogram 11/06/2024 11/06/2022, 11/06/2022 Influenza Vaccine (#1) 2025 , 03/21/2022, 04/07/2017, Additional history exists Cervical Cancer Screening 03/21/2025 HPV/Cotest 03/21/2025 Pap [...] 49) Years Aged Out No longer eligible based on patient's age to complete this topic RSV under 20 months Aged Out No longe r eligible based on patient's age to complete this topic Rotavirus Vaccines Aged Out No longer eligible based on patient's age to complete this topic Procedures Procedure Name Priority Date/Time Associated Diagnosis Comments GROSS AND MICROSCOPIC LEVEL 3 Routine 10/27/2024 9:48 AM EDT HCG, QL, URINE Routine 10/27/2024 8:10 AM EDT LIPID PANEL, STANDARD Routine 11/24/2023 12:50 PM EDT BI MAMMOGRAM SCREENING TOMOSYNTHESIS BILATERAL Routine 11/06/2022 4:05 PM EDT THINPREP IMAGING SYSTEM PAP Routine 03/21/2022 10:10 AM EST from Last 3 Months or Most Recently Relevant to Health Maintenance Results * Gross and Microscopic Level 3 (10/27/2024 9:48 AM EDT) 10/27/2024 9:48 AM EDT 10/27/2024 10:00 AM EDT [facility] - 10/28/2024 11:01 AM EDT ----- ------- Name: Kwadwo DíazWeston Age/Sex: 44/F : 1980 Unit#: [id number] Attend Dr: Sarthak Watt MD Re10/27/24 Status: [facility] Location: [facility] Disch: ----- ------- SPEC : [id number] RECD: 10/27/24 STATUS: DOMINGO ECHAVARRIA NUM: [id number] GIFTY: 10/27/24 [facility] DR: Sarthak Watt MD ENTERED: 10/27/24 SP TYPE: Surgical OTHR DR: Kendra Sepulveda MD ORDERED: Gross Micro L3 Diagnosis Hemorrhoid, hemorrhoidectomy: Benign squamous and colonic mucosa with inflammation and focal erosion, and underlying ectatic and irregular vessels consistent with hemorrhoids. Clinical History Hemorrhoid Microscopic Description Microscopic sections reviewed. Material Received Hemorrhoid Gross Description Received in formalin labeled hemorrhoid is a 2.0 x 0.8 cm wrinkled, edematous and erythematous, ahumada-white and pink-red portion of rectoanal mucosa excised to a maximum depth of 0.45 cm. No erosions or ulcers are identified. The margins are inked and the specimen is serially sectioned to reveal edematous, ahumada, pink-red cut surfaces, entirely submitted in a cassette labeled A. CEDS IHC S/NG Disclaimer NOTE: Unless otherwise stated, all tissue is formalin-fixed and paraffin-embedded. Some or all of the immunohistochemical tests reported herein may have been developed and their performance characteristics determined by [facility]. They have not been cleared or approved by the U.S. Food and Drug Administration (FDA). However, the FDA has determined that such clearance or approval is not necessary. This laboratory is certified under the Clinical Laboratory Improvement Amendments of 1988 (CLIA) as qualified to perform high complexity clinical laboratory testing. Copies To: Kendra Sepulveda MD [address] [address] CONTINUED ON NEXT PAGE ----- ------- Name: Weston Tripp Age/Sex: 44/F : 1980 Unit#: [id number] Attend Dr: Sarthak Watt MD Re10/27/24 Status: [facility] Location: [facility] Disch: ----- ------- SPEC : [id number] RECD: 10/27/24 STATUS: DOMINGO ECHAVARRIA NUM: [id number] GIFTY: 10/27/24 [facility] DR: Sarthak Watt MD ENTERED: 10/27/24-1006 SP TYPE: Surgical OTHR DR: Kendra Sepulveda MD ORDERED: Gross Micro L3 Copies To: (Continued) Sarthak Watt MD [facility] [address] [place] [id number] ----- ------- Signed (signature on file) Mae Kong 10/28/24 1101 ----- ------- END OF REPORT Generic External Data Provider LAB CYTOLOGY ORDE RABLES Final Result Performing Organization Address [facility] Co de Phone Number [facility] [address] [place] [address] [phone] * HCG, Qualitative, Urine (10/27/2024 8:10 AM EDT) Urine NEGATIVE NEGATIVE [facility] Comment:This test was develo ped to detect early . Falsenegative results may occur after the 5th - 7th week ofpregnancy when using this test method. If clinicallyindicated, consider a serum hCG. 10/27/2024 8:10 AM EDT 10/27/2024 8:19 AM EDT Generic External Data Provider LAB URINE ORDERAB LES Final Result Performing Organization Address [facility] Co de Phone Number [facility] [address] [place] [address] [phone] * Lipid Panel, Standard (11/24/2023 12:50 PM EDT) Blood Venous blood specimen / Unknown Historical Provider LAB BLOOD ORDERABLES Emily l Result * BI Mammogram Screening Tomosynthesis Bilateral (11/06/2022 4:05 PM EDT) Anatomical Region Laterality Modality Breast Bilateral Mammography 11/06/2022 4:05 PM EDT Narrative 11/25/2022 12:52 PM EDT [facility] [address] [place], [place] [address] Mammography Report Signed Patient: Weston Tripp MR#: [id number] : 1980 Acct:[id number] Age/Sex: 42 / F ADM Date: 11/06/22 Loc: LISA.MAMMO Attending Dr: Kendra Sepulveda MD Ordering Physician: Kendra Sepulveda MD Results: Date of Service: 11/06/22 Follow Up: Procedure(s): MM tomosynthesis screening BI Accession Number(s): [id number] cc: Kendra Sepulveda MD EXAMINATION: MM SCREENING [...] in OV> 11/25/22 1249 DD/ 1605 TD/TT: Baker: Procedure Note Donotuseinterpreter, Image - 11/25/2022 [facility] [address] [place] [address] Dr[place], [place] [address] Mammography Report Signed Patient: Jina Tripp#: [id number] : 1980Acct:[id number] Age/Sex: 42 / FADM Date: 11/06/22 Loc: IZZY Attending Dr: Kendra Sepulveda MD Ordering Physician: Kendra Sepulveda MDResults: Date of Service: 11/06/22Follow Up: Procedure(s): MM tomosynthesis screening BI Accession Number(s): [id number] cc: Kendra Sepulveda MD EXAMINATION: MM SCREENING [...] in OV> 11/25/22 1249 DD/ 1605 TD/TT: Baker: 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 It is not a diagnostic test and is subject to false negative and false positive results. It is most reliable when a satisfactory sample, regularly obtained, is submitted with relevant clinical findings and history, and when the Pap result is evaluated along with historic and current clinical information. COMMENT: This Pap test has been evaluated with computer assisted technology. CONVERTED LEGACY LABS Shaker Screen Operator : SEE COMMENT CONVERTED LEGACY LABS Comment: DANG, CT(ASCP) CT screening location: [place] [address] Interpretation/R esult: Negative for intraepithelial lesion or malignancy. CONVERTED LEGACY LABS LMP: 20,221,[id number] CONVERTED LEGACY LABS Prev. BX: NONE GIVEN CONVERTED LEGACY LABS Prev. PAP: 2,018 CONVERTED LEGACY LABS Review Shaker Screen Operator : SEE COMMENT CONVERTED LEGACY LABS Comment: ALYSSA, CT(ASCP) CT screening location: [place] [address] SOURCE: Cervix CONVERTED LEGACY LABS Statement Of Adequacy: SEE COMMENT CONVERTED LEGACY LABS Comment: Satisfactory for evaluation. Endocervical/transformation zone component present. 03/21/2022 10:1 0 AM EST us Kendra Sepulveda MD LAB PATHOLOGY ORDERABLES Emily madera Result Performing Organization Address City/State/[facility] Co de Phone Number CONVERTED LEGACY LABS from Last 3 Months or Most Recently Relevant to Health Maintenance Insurance CHOICE Care Teams Shiftman Relationship Specialty Start Date End Date Kendra Sepulveda MD [address] [place] [id number] PCP - General Internal Medicine 03/27/22
== END 2024-11-19 10:26 | disposition home or self-care (01) ==
LOC: HO.HGS 10:06
PROVIDERS: PCP Pediatrics; Visit Provider Surgery
DX: K64.8 Other hemorrhoids (principal)
CPT/HCPCS: 99024